=== PATIENT | male | born 1975 | race Caucasian/White ===

== ENCOUNTER 2017-03-23 11:52 | Outpatient (CLI) ==
[2014-03-20 20:00] VITALS: BMI 46.1
== END 2017-03-23 11:53 | disposition home or self-care (01) ==
LOC: LAB 11:52
PROVIDERS: ATTEND Nurse Practitioner Family
DX: J02.9 Acute pharyngitis, unspecified (principal)
CPT/HCPCS: 87651; 87880

== ENCOUNTER 2017-04-13 15:46 | Emergency (ER) ==
[2017-04-13 15:50] VITALS: BP 159/97; TEMP 99.2; BMI 48.8
--- NOTE | 2017-04-13 16:45 | ED.PDOC ---
General ED Provider: Dr. JOSEFINA LEAL Chief Complaint: Sore Throat Stated Complaint: sore throat Time Seen by Physician: 16:00 Mode of Arrival: Walk-In Information Source: Patient Exam Limitations: No limitations Primary Care Provider: KAL DAUGHERTY Nursing and Triage Documentation Reviewed and Agree: Yes EENT Complaint Exam - Throat Complaint/Exam Onset/Duration: 1 day Symptoms Are: Still present Timimg: Intermittent Initial Severity: Moderate Current Severity: Moderate Aggravating: Reports: None Alleviating: Reports: None Associated Signs and Symptoms: Reports: Cough, Nasal congestion Uvula Midline: Yes Macarena-tonsillar Fluctuence: No Scarlatinaform Rash Present: No Stridor Present: No Sinus Tenderness Present: No Tonsillar Hypertrophy Present: No Tonsillar Exudate Present: No Macarena-tonsillar Swelling Present: No Adenopathy Present: No Splenomegaly Present: No Review of Systems - Review Of Systems Constitutional: Reports: No symptoms Eyes: Reports: No symptoms Ears, Nose, Mouth, Throat: Reports: Throat pain Respiratory: Reports: No symptoms Cardiac: Reports: No symptoms GI: Reports: No symptoms : Reports: No symptoms Musculoskeletal: Reports: No symptoms Skin: Reports: No symptoms Neurological: Reports: No symptoms Endocrine: Reports: No symptoms Hematologic/Lymphatic: Reports: No symptoms All Other Systems: Reviewed and Negative Past Medical History - Past Medical History Previously Healthy: Yes Endocrine: Reports: None Cardiovascular: Reports: None Respiratory: Reports: None Hematological: Reports: None Gastrointestinal: Reports: None Genitourinary: Reports: None Neuro/Psych: Reports: None Musculoskeletal: Reports: None Cancer: Reports: None - Surgical History General Surgical History: Reports: None - Family History Family History: Reports: None - Social History Smoking Status: Vaping Hx Substance Use: No Alcohol Screening: None Physical Exam - Physical Exam Appearance: Well-appearing, No pain distress, Well-nourished Eyes: LEONOR, EOMI, Conjunctiva clear ENT: Erythema, Exudate Respiratory: Airway patent, Breath sounds clear, Breath sounds equal, Respirations nonlabored Cardiovascular: RRR, Pulses normal, No rub, No murmur GI/: Soft, Nontender, No masses, Bowel sounds normal, No Organomegaly Musculoskeletal: Normal strength, ROM intact, No edema, No calf tenderness Skin: Warm, Dry, Normal color Neurological: Sensation intact, Motor intact, Reflexes intact, Cranial nerves intact, Alert, Oriented Psychiatric: Affect appropriate, Mood appropriate Critical Care Note - Critical Care Note Total Time (mins): 0 Course - Course Vital Signs: Temp Pulse Resp BP Pulse Ox 04/13/17 15:46 99.2 F 85 20 159/97 H 95 Departure - Departure Time of Disposition: 16:45 Disposition: HOME SELF-CARE Discharge Problem: Sore throat symptom Instructions: Pharyngitis (ED), Strep Throat (ED) Condition: Good Pt referred to PMD for follow-up: No Allergies/Adverse Reactions: Allergies No Known Allergies Allergy (Verified 04/13/17 15:50) Home Medications: Ambulatory Orders Clonazepam [Klonopin] 0.5 mg PO TID 03/20/14 Levothyroxine Sodium 25 mcg PO DAILY #1 tab-cap 03/24/16 Lisinopril 40 mg PO DAILY #1 tab-cap 03/24/16
== END 2017-04-13 16:50 | disposition home or self-care (01) ==
LOC: ED 15:46
DX: J02.9 Acute pharyngitis, unspecified (principal)
CPT/HCPCS: 99282

== ENCOUNTER 2017-08-02 18:39 | Inpatient (IN) ==
--- NOTE | 2017-08-02 18:49 | ED.PDOC ---
General Stated Complaint: hurts in right lower thoracic back and side, onset 2 days ago. Initially mild, now more severe. Hurts if he sneezes of takes a deep breath. No cough. Has had cold sx for 2 days also. Time Seen by Physician: 18:50 Mode of Arrival: Walk-In Information Source: Patient Exam Limitations: No limitations Nursing and Triage Documentation Reviewed and Agree: Yes <RADHA FAITH - Last Filed: 08/02/17 19:03> Stated Complaint: Took 4 Ibupfrufen 30 min prior to arrival. <DIETER AMBROSE - Last Filed: 08/02/17 23:25> ED Provider: Dr. DIETER AMBROSE Chief Complaint: Back Pain Primary Care Provider: KAL DAUGHERTY Musculoskeletal Complaint Exam - Back Pain Complaint/Exam Mechanism of Injury: Reports: No known trauma Onset/Duration: 2 days Symptoms Are: Still present Timing: Constant Initial Severity: Mild Current Severity: Moderate Location: Reports: Diffuse Character: Reports: Aching, Throbbing (sharp pain with deep breath) Aggravating: Reports: Movements, Cough (deep breath) Alleviating: Reports: None TAD Risk Factors: Reports: None AAA Risk Factors: Reports: None Cauda Equina Risk Factors: Reports: None Epidural Abcess Risk Factors: Reports: None Related Surgical History: Reports: None Focal Tenderness: No Paraspinal Muscle Tenderness: No Paraspinal Muscle Spasm: No Scoliosis: No Lordosis: No Kyphosis: No Focal Weakness: Present: None Focal Sensory Loss: Present: None Gait: Present: Normal Differential Diagnoses: Strain (pleurisy, ureterolithiasis) <RADHA FAITH - Last Filed: 08/02/17 19:03> Review of Systems - Review Of Systems Constitutional: Reports: No symptoms Eyes: Reports: No symptoms Ears, Nose, Mouth, Throat: Reports: No symptoms Respiratory: Reports: No symptoms Cardiac: Reports: Chest pain GI: Reports: No symptoms : Reports: No symptoms Musculoskeletal: Reports: Back pain Skin: Reports: No symptoms Neurological: Reports: Anxiety Endocrine: Reports: No symptoms Hematologic/Lymphatic: Reports: No symptoms All Other Systems: Reviewed and Negative <DIETER AMBROSE - Last Filed: 08/02/17 23:25> Past Medical History - Past Medical History Previously Healthy: Yes Endocrine: Reports: None Cardiovascular: Reports: None Respiratory: Reports: None Hematological: Reports: None Gastrointestinal: Reports: None Genitourinary: Reports: None Neuro/Psych: Reports: None Musculoskeletal: Reports: None Cancer: Reports: None - Surgical History General Surgical History: Reports: None - Family History Family History: Reports: None - Social History Smoking Status: Vaping Hx Substance Use: No Alcohol Screening: None <RADHA FAITH - Last Filed: 08/02/17 19:03> - Past Medical History Endocrine: Reports: Hypothyroid Cardiovascular: Reports: Hypertension Other Pertinent Past Medical History: obesity , sedentary life style - Family History Family History: Reports: None <DIETER AMBROSE - Last Filed: 08/02/17 23:25> Physical Exam - Physical Exam Appearance: Well-appearing, No pain distress, Well-nourished, Obese Ill-appearing: None Pain Distress: Moderate Respiratory: Airway patent, Breath sounds clear, Breath sounds equal, Respirations nonlabored Cardiovascular: RRR, Pulses normal, No rub, No murmur GI/: Soft, Nontender, No masses, Bowel sounds normal, No Organomegaly Musculoskeletal: Normal strength, ROM intact, No edema, No calf tenderness Skin: Warm, Dry, Normal color Neurological: Sensation intact, Motor intact, Reflexes intact, Cranial nerves intact, Alert, Oriented Psychiatric: Affect appropriate, Mood appropriate <RADHA FAITH - Last Filed: 08/02/17 19:03> Interpretation - Radiology Interpretation Radiology Interpretation By: Radiologist Radiology Results: Negative Exam Interpreted: CXR Radiology Interpretation By: Radiologist Radiology Results: Positive (right lower segmental PE) Exam Interpreted: CT Scan (angio ) <DIETER AMBROSE - Last Filed: 08/02/17 23:25> Re-Evaluation - Re-Evaluation Time of Re-Evaluation: 20:50 Status: Improved Vital Signs Stable: Yes Pain Level: 3 Appearance: NAD <DIETER AMBROSE - Last Filed: 08/02/17 23:25> Physician Notification - Case Discussed Time of Notification: 19:04 Endorsed To/Discussed With: Dr. Ambrose <RADHA FAITH - Last Filed: 08/02/17 19:03> Critical Care Note - Critical Care Note Total Time (mins): 35 <DIETER AMBROSE - Last Filed: 08/02/17 23:25> Course - Course Hematology/Chemistry: 08/02/17 19:00 08/02/17 19:00 <DIETER AMBROSE - Last Filed: 08/02/17 23:25> - Course Orders, Labs, Meds: Lab Review 08/02/17 08/02/17 08/02/17 19:00 19:08 21:39 WBC 10.75 H RBC 5.03 Hgb 14.6 Hct 43.0 MCV 85.5 MCH 29.0 MCHC 34.0 RDW Coeff of Brenda 13.1 Plt Count 184 Immature Gran % (Auto) 0.4 Neut % (Auto) 69.1 Lymph % (Auto) 19.4 Trigg % (Auto) 8.0 Eos % (Auto) 2.6 Baso % (Auto) 0.5 Immature Gran # (Auto) 0.0 Neut # 7.4 H Lymph # 2.1 Trigg # 0.9 Eos # 0.3 Baso # 0.1 D-Dimer (Manual) 1365.02 Puncture Site Lb O2 Saturation 92.0 L ABG pH 7.373 ABG pCO2 40.7 ABG pO2 65.0 L ABG HCO3 23.7 ABG Total CO2 25 ABG Base Excess -2 Philippe Test + FiO2 % 21.0 Sodium 139 Potassium 4.4 Chloride 103 Carbon Dioxide 26 Anion Gap 14.4 BUN 10 Creatinine 0.96 Estimated GFR (MDRD) 86.00 BUN/Creatinine Ratio 10.41 Glucose 105 H Calcium 9.3 Total Bilirubin 0.75 AST 11 L ALT 24 Alkaline Phosphatase 65 Troponin I < 0.0100 Total Protein 7.5 Albumin 3.6 Globulin 3.9 Albumin/Globulin Ratio 0.92 Urine Color Yellow Urine Clarity Clear Urine pH 6.0 Ur Specific Morland 1.015 Urine Protein Negative Urine Glucose (UA) Negative Urine Ketones Negative Urine Blood Negative Urine Nitrite Negative Urine Bilirubin Negative Urine Urobilinogen 0.2 Ur Leukocyte Esterase Negative Orders Category Date Time Status ABG DRAW REQUEST Stat CARDIO 08/02/17 21:40 Ordered EKG-(ED ONLY) Stat CARDIO 08/02/17 19:32 Ordered NPO REMINDER: IMAGING ONCE CARE 08/02/17 20:15 Completed ED IV/MEDIPORT/POWERPORT .ONCE EMERGENCY 08/02/17 20:15 Active ABG Stat LAB 08/02/17 21:39 Completed CBC W/ AUTO DIFF Stat LAB 08/02/17 19:00 Completed CMP [COMPREHENSIVE METABOLIC PANEL] Stat LAB 08/02/17 19:00 Completed D-DIMER Stat LAB 08/02/17 19:00 Completed TROPONIN I Stat LAB 08/02/17 19:00 Completed URINALYSIS C & S IF INDICATED Stat LAB 08/02/17 19:08 Completed 0.9 % Sodium Chloride [Saline Flush] MEDS 08/02/17 20:15 Ordered 1 syr IVF PRN PRN Enoxaparin Sodium [Lovenox] MEDS 08/02/17 21:38 Discontinued 170 mg SUBCUT ONCE STA Ketorolac Tromethamine [Toradol] MEDS 08/02/17 19:48 Discontinued 30 mg IM ONCE STA Sodium Chloride 0.9% [Sodium Chloride] 1,000 ml MEDS 08/02/17 20:52 Discontinued IV BOLUS CHEST, 2 VIEWS PA & LAT Stat RADS 08/02/17 18:[address] CHEST PE PROTOCOL Stat RADS 08/02/17 20:15 Completed Medications Generic Name Dose Route Start Last Admin Trade Name Freq PRN Reason Stop Dose Admin Acetaminophen 650 mg 08/02/17 22:19 Tylenol PO Q4H PRN Mild pain Acetaminophen/Hydrocodone Bitart 1 tab 08/02/17 22:19 Dysart 5-325 PO Q6H PRN moderate pain Albuterol/Ipratropium 1 vial 08/02/17 22:19 Duoneb NEB RTBID PRN Wheezing or shortness of breat Apixaban 10 mg 08/02/17 22:30 Eliquis PO BID CHEIKH Sodium Chloride 1,000 mls @ 75 mls/hr 08/02/17 22:30 Sodium Chloride IV .[id number] [facility] Levothyroxine Sodium 25 mcg 08/03/17 09:00 Synthroid PO DAILY CHEIKH Non-Formulary Medication 40 mg 08/03/17 09:00 Lisinopril [Lisinopril] PO DAILY CHEIKH Ondansetron HCl 4 mg 08/02/17 22:19 Zofran 4 Mg/2 Ml IVP Q6H PRN Nausea / Vomiting Sodium Chloride 1 syr 08/02/17 20:15 08/02/17 22:17 Saline Flush IVF 1 syr PRN PRN Administration To flush IV Discontinued Medications Generic Name Dose Route Start Last Admin Trade Name Freq PRN Reason Stop Dose Admin Enoxaparin Sodium 170 mg 08/02/17 21:38 08/02/17 22:14 Lovenox SUBCUT 08/02/17 21:39 170 mg ONCE STA Administration Enoxaparin Sodium 170 mg 08/02/17 22:30 Lovenox SUBCUT 08/02/17 22:31 ONCE STA Sodium Chloride 1,000 mls @ 1,000 mls/hr 08/02/17 20:52 08/02/17 21:04 Sodium Chloride IV 08/02/17 21:51 1,000 mls/hr BOLUS STA Administration Ketorolac Tromethamine 30 mg 08/02/17 19:48 08/02/17 19:53 Toradol IM 08/02/17 19:49 30 mg ONCE STA Administration Non-Formulary Medication 0.5 mg 08/03/17 09:00 Clonazepam [Klonopin] PO TID [facility] Vital Signs: Temp Pulse Resp BP Pulse Ox 08/02/17 18:40 98.3 F 101 H 22 150/91 H 98 Departure <RADHA FAITH - Last Filed: 08/02/17 19:03> - Departure Time of Disposition: 22:33 Pt referred to PMD for follow-up: No (Admitted ) <DIETER AMBROSE - Last Filed: 08/02/17 23:25> - Departure Disposition: HOME SELF-CARE Discharge Problem: Pulmonary embolism on right Condition: Fair Allergies/Adverse Reactions: Allergies No Known Allergies Allergy (Verified 08/02/17 18:46) Home Medications: Ambulatory Orders Clonazepam [Klonopin] 0.5 mg PO TID 03/20/14 Levothyroxine Sodium 25 mcg PO DAILY #1 tab-cap 03/24/16 Lisinopril 40 mg PO DAILY #1 tab-cap 03/24/16
[2017-08-02 18:51] VITALS: BMI 50.1
[2017-08-02 19:09] LABS: BASOPHILS # (AUTO) 0.1 K/uL (0-0.2); BASOPHILS % (AUTO) 0.5 % (0.0-3.0); EOSINOPHILS # (AUTO) 0.3 K/ul (0.0-0.7); EOSINOPHILS % (AUTO) 2.6 % (0.0-7.0); HEMOGLOBIN 14.6 g/dl (14.0-18.0); IMMATURE GRANULOCYTE % (AUTO) 0.4 % (0.0-5.0); LYMPHOCYTES # (AUTO) 2.1 K/uL (0.60-3.4); LYMPHOCYTES % (AUTO) 19.4 (10.0-50.0); MEAN CORPUSCULAR VOLUME 85.5 fl (80.0-94.0); MONOCYTES # (AUTO) 0.9 K/uL (0.4-2.0); NEUTROPHILS # (AUTO) 7.4 K/ul (2.0-6.9); NEUTROPHILS % (AUTO) 69.1; PLATELET COUNT 184 10^3/uL (140-440); RED BLOOD COUNT 5.03 10^6/ul (4.70-6.10); WHITE BLOOD COUNT 10.75 K/ul (4.2-10.2)
[2017-08-02 19:17] LABS: ADD URINE MICROSCOPIC NO; BILIRUBIN,URINE Negative (NEGATIVE); KETONES,URINE Negative (NEGATIVE); LEUKOCYTE ESTERASE ,URINE Negative (NEGATIVE); NITRITE,URINE Negative (NEGATIVE); PROTEIN,URINE Negative (NEGATIVE); URINE, BLOOD Negative (NEGATIVE)
[2017-08-02 19:29] LABS: ALBUMIN 3.6 g/dL (3.4-5.0); ALBUMIN/GLOBULIN RATIO 0.92; ANION GAP 14.4; BILIRUBIN,TOTAL 0.75 mg/dL (0.00-1.20); BUN/CREATININE RATIO 10.41; CALCIUM 9.3 mg/dL (8.2-10.2); CREATININE 0.96 mg/dL (0.60-1.10); POTASSIUM 4.4 mmol/L (3.5-5.1); TOTAL PROTEIN 7.5 g/dL (6.4-8.2)
--- NOTE | 2017-08-02 19:33 | DI ---
EXAM: Chest two views CLINICAL INDICATION: Right-sided chest pain. COMPARISON: 03/20/2014. FINDINGS: PA and lateral views of the thorax are provided. The pulmonary parenchyma is clear and there is no pleural abnormality. The cardiomediastinal silhou ette and visualized bony structures are unchanged. IMPRESSION: Negative chest x-ray.
[2017-08-02] MEDS ORDERED: TORADOL IM STA (19:48)
[2017-08-02] MEDS ORDERED: SODIUM CHLORIDE 1,000 ML IV STA (20:52)
--- NOTE | 2017-08-02 21:30 | CT ---
EXAM: CTA chest for Pulminary Embolism. HISTORY: Chest pain, elevated D-dimer COMPARISON: Chest, 08/02/2017 TECHNIQUE: CTA of the chest was performed from the lung apices to the upper abdomen after IV contr ast was administered using PE protocol. 3-D imaging was also provided. FINDINGS: There is no filling defect or embolism in the main pulmonary artery, right or left pulmon bina artery. However, there are filling defects in the segmental branches of the right lower lobe pul monary artery consistent with acute pulmonary embolism. There is no aortic dissection aneurysm. No pericardial pleural effusion. There is no mediastinal o r hilar adenopathy. No pulmonary consolidation or pneumonia seen. There is some steatosis of the l iver. No adrenal enlargement. No acute finding the upper Kira. Impression 1. Current exam confirms pulmonary emboli in the segmental branches of the right lower lobe pulmona ry artery. 2. No acute pulmonary infiltrate, pulmonary edema or pleural fluid. 3. Steatosis of the liver. Critical result of pulmonary emboli right lower lobe pulmonary artery segmental branches called to [facility] staff, Dr. Helm, at 9:25 p.m. Faxed report sent.
[2017-08-02] MEDS ORDERED: LOVENOX SUBCUT STA ×2 (21:38→22:30)
[2017-08-02 22:00] LABS: ABG PH 7.373 (7.35-7.45)
[2017-08-02 22:01] LABS: ABG BASE EXCESS -2 (-2.0-2.0); ABG HCO3 23.7 (22.0-26.0); ABG PCO2 40.7 mmHg (35-45); ABG TCO2 25 (22.0-28.0)
[2017-08-02] MEDS ORDERED: TYLENOL PO PRN (22:19)
[2017-08-02] MEDS ORDERED: ZOFRAN 4 MG/2 ML IVP PRN (22:19)
[2017-08-02] MEDS ORDERED: NORCO 5-325 PO PRN (22:19)
[2017-08-02] MEDS ORDERED: DUONEB NEB PRN (22:19)
[2017-08-02] MEDS ORDERED: ELIQUIS PO SCH (22:30)
[2017-08-02] MEDS ORDERED: KLONOPIN ONE (22:34)
[2017-08-02] MEDS: SODIUM CHLORIDE 1,000 ML IV SCH (22:44)
[2017-08-02] MEDS ORDERED: NON-FORMULARY MEDICATION (Clonazepam [Klonopin] 0.5 MG) PO SCH ×22 (22:45)
[2017-08-03] MEDS ORDERED: TORADOL IVP STA (02:45)
[2017-08-03] MEDS: KLONOPIN PO SCH ×3 (04:35→21:02)
[2017-08-03] MEDS ORDERED: KLONOPIN ONE (04:35)
[2017-08-03 04:56] LABS: BASOPHILS % (AUTO) 0.3 % (0.0-3.0); EOSINOPHILS # (AUTO) 0.3 K/ul (0.0-0.7); HEMATOCRIT 38.1 % (42.0-52.0); HEMOGLOBIN 12.7 g/dl (14.0-18.0); IMMATURE GRANULOCYTE % (AUTO) 0.2 % (0.0-5.0); LYMPHOCYTES # (AUTO) 2.1 K/uL (0.60-3.4); LYMPHOCYTES % (AUTO) 23.3 (10.0-50.0); MEAN CORPUSCULAR HEMOGLOBIN 29.1 pg (27.0-31.0); MEAN CORPUSCULAR HGB CONC 33.3 (31.8-35.4); MEAN CORPUSCULAR VOLUME 87.2 fl (80.0-94.0); MONOCYTES # (AUTO) 0.9 K/uL (0.4-2.0); MONOCYTES % (AUTO) 9.9 (0-10); NEUTROPHILS # (AUTO) 5.6 K/ul (2.0-6.9); NEUTROPHILS % (AUTO) 63.3; PLATELET COUNT 163 10^3/uL (140-440); RED BLOOD COUNT 4.37 10^6/ul (4.70-6.10); WHITE BLOOD COUNT 8.78 K/ul (4.2-10.2)
[2017-08-03 05:24] LABS: ALBUMIN 3.1 g/dL (3.4-5.0); ANION GAP 14.2; BILIRUBIN,TOTAL 0.54 mg/dL (0.00-1.20); BUN/CREATININE RATIO 13.09; CALCIUM 8.7 mg/dL (8.2-10.2); CREATININE 0.84 mg/dL (0.60-1.10); POTASSIUM 4.2 mmol/L (3.5-5.1); TOTAL PROTEIN 6.2 g/dL (6.4-8.2)
[2017-08-03] MEDS ORDERED: TORADOL IVP PRN (08:12)
[2017-08-03 08:23] LABS: PROTHROMBIN TIME 10.6 SEC (9.3-11.0)
[2017-08-03] MEDS ORDERED: DECADRON 4 MG/ML SDV IM STA (08:46)
[2017-08-03 08:51] LABS: CHOL/HDL RATIO 4.1 (4.5-6.4)
[2017-08-03] MEDS: ELIQUIS PO SCH ×2 (08:54→21:02)
[2017-08-03] MEDS: ZESTRIL PO SCH (08:54)
[2017-08-03] MEDS: SYNTHROID PO SCH (08:54)
[2017-08-03] MEDS ORDERED: NON-FORMULARY MEDICATION (Lisinopril [Lisinopril] 40 MG) PO SCH (09:00)
[2017-08-03] MEDS ORDERED: NON-FORMULARY MEDICATION (Clonazepam [Klonopin] 0.5 MG) PO SCH ×22 (09:00)
--- NOTE | 2017-08-03 09:12 | PCM.PROG ---
Attending Provider: ATTENDING PROVIDER: [facility] DATE OF SERVICE: 08/03/17 SUBJECTIVE: This 41 year old WHITE/ M was hospitalized 08/02/17. The patient is seen with Karina, Nurse Practitioner. alert, lying in bed. The patient has no shortness of breath. The patient is complaining of pain with inspiration. CTA showed embolism in right pulmonary artery. REVIEW OF SYSTEMS: CONSTITUTIONAL: No night sweats. No fatigue, malaise, lethargy. No fever or chills. HEENT: Eyes: No visual changes. No eye pain. No eye discharge. ENT: No runny nose. No epistaxis. No sinus pain. No odynophagia. No congestion. RESPIRATORY: Positive for pain with inspiration. No shortness of breath. No cough, no congestion. No hemoptysis. CARDIOVASCULAR: No angina symptoms. No CHF symptoms. No atypical chest pain for CAD. No palpitations. No orthopnea.. GASTROINTESTINAL: No abdominal pain. No nausea or vomiting. No diarrhea or constipation. No hematemesis. No hematochezia. GENITOURINARY: No urgency. No frequency. No dysuria. No hematuria. No obstructive symptoms. No discharge. No pain. No significant abnormal bleeding. MUSCULOSKELETAL: No musculoskeletal pain; no joint swelling. NEUROLOGICAL: Awake, alert, oriented to time, place and person. No headache. No neck pain. No syncope. No seizures. No dizziness. PSYCHIATRIC: Not anxious. No depression. No suicidal thoughts. No homicidal thoughts. SKIN: No rash. No lesions. No wounds. ENDOCRINE: No unexplained weight loss. No weight gain. HEMATOLOGIC/LYMPHATIC: No anemia. No purpura. No petechiae. No prolonged or excessive bleeding. No palpable lymph nodes. PHYSICAL EXAMINATION: GENERAL: The patient is awake, alert and oriented, lying in bed in no acute distress. VITAL SIGNS: Temperature 97.2 F, Pulse 73, Respiratory Rate 16, BP 109/70, Pulse Ox 98% HEENT: Head normocephalic, atraumatic. Eyes: Extraocular muscles are intact. Pupils are equal, round and reactive to light and accommodation. Ears: No lesions. Nose appeared normal. Throat: No exudate or erythema. NECK: Supple. No JVD, no carotid bruit. No lymphadenopathy or thyromegaly. LUNGS: Clear and equal with diminished breath sounds. Percussion note normal. Chest symmetrical. HEART: S1, S2, no S3. No murmurs. No cyanosis or clubbing. No ascites. Pulses: Dorsalis pedis and posterior tibial pulses +1 to +2 both sides. ABDOMEN: Soft. Non-tender. Bowel sounds active. No CVA tenderness. No mass felt. EXTREMITIES: No calf swelling, no redness. Negative Kamila's sign. No edema. Full range of motion of all extremities, equal. NEUROLOGIC: No focal deficit. Cranial nerves II through XII are grossly intact. No headache, no double vision or headache. SKIN: Not dry. Intact. Turgor-normal. LYMPHATIC: No palpable lymph nodes/no lymphedema. MUSCULOSKELETAL: Normal joints with no swelling. Muscle tone is normal. LAB REVIEW: 08/03/17 04:30 08/03/17 04:30 08/03/17 04:30: WBC 8.78, RBC 4.37 L, Hgb 12.7 L, Hct 38.1 L, MCV 87.2, MCH 29.1 , MCHC 33.3, RDW Coeff of Brenda 13.2, Plt Count 163, Immature Gran % (Auto) 0.2, Neut % (Auto) 63.3, Lymph % (Auto) 23.3, Wharton % (Auto) 9.9, Eos % (Auto) 3.0, Baso % (Auto) 0.3, Immature Gran # (Auto) 0.0, Neut # 5.6, Lymph # 2.1, Wharton # 0.9, Eos # 0.3, Baso # 0.0, Sodium 141, Potassium 4.2, Chloride 104, Carbon Dioxide 27, Anion Gap 14.2, BUN 11, Creatinine 0.84, Estimated GFR (MDRD) 100.00 , BUN/Creatinine Ratio 13.09, Glucose 99, Calcium 8.7, Total Bilirubin 0.54, AST 10 L, ALT 19, Alkaline Phosphatase 58, Total Protein 6.2 L, Albumin 3.1 L, Globulin 3.1, Albumin/Globulin Ratio 1.00 ASSESSMENT: 1. Acute pulmonary embolism 2. Obesity 3. Hypertension 4. Hypothyroid PLAN: 1. Lipid panel 2. T4 and TSH 3. Toradol 30 mg q.8 p.r.n. 4. Venous scan today 5. PT/PTT/INR 6. ABGs if not done Plan and coordination of the patient's care discussed in the presence of Cytogenetic Technologist and nurse. CONDITION: Guarded SCRIBED BY: BENNIE SHIPMAN Dental Lab Technician scribed while in presence of service performed by Dr. CHRISTIANO J[facility]AREZ-[facility]/KARINA CASTRO APRN on 08/03/17 ([id number])
[2017-08-03] MEDS: TORADOL IVP PRN ×2 (09:49→16:46)
[2017-08-03] MEDS: PROTONIX IV 40 MG in SODIUM CHLORIDE 100 ML IV SCH ×2 (10:43→21:09)
[2017-08-03] MEDS: SODIUM CHLORIDE 1,000 ML IV SCH (12:20)
--- NOTE | 2017-08-03 12:47 | PN ---
DATE OF SERVICE: 08/02/17 - ADMITTING NOTE REASON FOR HOSPITALIZATION: Right lower lobe segmental pulmonary embolus. HISTORY OF PRESENT ILLNESS: This is a 41-year-old white male who was hospitalized with pleuritic type of pain which was further investigated. D. dimer was elevated. Pulmonary embolus was diagnosed. The patient's cardiovascular status is stable with pulse of 80 per minute. Blood pressure 128/70, oxygen saturation 96% on room air. Risk factors are sedentary lifestyle and smoking. PHYSICAL EXAMINATION: HEENT: Head normocephalic, atraumatic. Eyes: Extraocular muscles are intact. Pupils are equal, round and reactive to light and accommodation. Ears: No lesions. Nose appeared normal. Throat: No exudate or erythema. NECK: Supple. No JVD, no carotid bruit. No lymphadenopathy or thyromegaly. LUNGS: Clear to auscultation. Decreased breath sounds. Percussion note normal. Chest symmetrical. CVS: S1, S2, no S3. No murmurs. No cyanosis or clubbing. No ascites. Pulses : Dorsalis pedis and posterior tibial pulses +1 to +2 both sides. ABDOMEN: Soft. Nontender. Bowel sounds active. No CVA tenderness. No mass felt. EXTREMITIES: No edema. Full range of motion of all extremities, equal. NEUROLOGIC: No focal deficit. Cranial nerves II through XII are grossly intact. No headache, no double vision or headache. SKIN: Not dry. Intact. Turgor - normal. LYMPHATIC: No palpable lymph nodes/no lymphedema. MUSCULOSKELETAL: Normal joints with no swelling. Muscle tone is normal. ASSESSMENT: 1. ACUTE PULMONARY EMBOLUS, SEGMENTAL, RIGHT LOWER LOBE WITH PLEURITIC TYPE OF PAIN. 2. COPD. 3. HYPERTENSION. 4. SEDENTARY LIFESTYLE. 5. SMOKING. PLAN: 1. Start Eliquis 10 b.i.d. for 7 days; after that 5 mg b.i.d. 2. Will do bilateral and venous scan. 3. Telemetry, EKG, Echocardiogram. 4. Factor V Leiden and several blood tests for hypercoagulable status to rule out hypercoagulable status. COUNSELING FOR SMOKING DONE. CONDITION: Stable MTDD
--- NOTE | 2017-08-03 14:18 | ECHO2D ---
Date of Exam: 08/03/17 Ordering Physician: HOSPITALIST--CHRISTIANO JUAREZ Room #: [id number] Reason for Echo: PULMONARY EMBOLISM M-Mode Normal Adult Results LV Dimensions Normal Adult Results AoV Opening excursions >1.6 >1.6 LVEDD-base- 3.5-5.8 5.6 Ao root dimensions 2.0-3.7 3.4 LVESD-base- 3.1-4.6 L. Atrium dimensions 1.9-3.8 5.0 Post. Wall thickness 0.8-1.1 1.1 IV septum (thickness) 0.7-1.2 1.2 Post. Wall excursion 0.72-1.3 NORMAL Septal motion NORMAL Systolic motion R. Ventricular cavity 1.5-2.0 NORMAL LVEF 60% 51% Paradoxical septal wall motion NORMAL 2-D : 2-D M Mode Echocardiogram was performed using apical four chamber and left parasternal long and short axis views. Mitral, tricuspid and aortic valves appear to be normal. Contractility of the left ventricle seems to be normal, so is the cavity size. Enlarged left atrial cavity. Aortic root appears to be normal. There is no pericardial effusion. There is no thrombus noted in the left ventricular or left aortic cavity. No mitral valve prolapse noted. M-MODE: MV: NORMAL AV: NORMAL TV: NORMAL PV: CHAMBER SIZE: ENLARGED LEFT ATRIAL CAVITY WALL MOTION: NORMAL PERICARDIUM: NORMAL INTERPRETATION: 1. BORDERLINE LEFT VENTRICULAR HYPERTROPHY 2. ENLARGED LEFT ATRIAL CAVITY 3. NORMAL LEFT VENTRICULAR CONTRACTILITY--EJECTION FRACTION 51% 4. LEFT VENTRICLE SIZE 5.6 CM MTDD
--- NOTE | 2017-08-03 15:00 | US ---
EXAM: Bilateral lower extremity venous Doppler HISTORY: Concern for DVT with prior pulmonary embolism. COMPARISON: CT chest 08/02/2017 TECHNIQUE: Sonographic and Doppler evaluation of the bilateral lower extremity vessels from the com mon femoral through the anterior tibial veins were obtained. Augmentation and compression technique s were also performed. FINDINGS: There is spontaneous Doppler flow seen in the bilateral lower extremity veins from the co mmon femoral through the anterior tibial veins. There is normal compression and augmentation throug hout the lower extremity veins. Sonographic appearance of the soft tissues are unremarkable. IMPRESSION: No lower extremity thrombus
[2017-08-04] MEDS: SODIUM CHLORIDE 1,000 ML IV SCH ×3 (04:14→21:57)
[2017-08-04] MEDS: KLONOPIN PO SCH ×3 (04:37→20:14)
[2017-08-04 05:28] LABS: BASOPHILS % (AUTO) 0.3 % (0.0-3.0); EOSINOPHILS # (AUTO) 0.2 K/ul (0.0-0.7); EOSINOPHILS % (AUTO) 1.8 % (0.0-7.0); HEMATOCRIT 36.1 % (42.0-52.0); IMMATURE GRANULOCYTE % (AUTO) 0.5 % (0.0-5.0); LYMPHOCYTES # (AUTO) 1.5 K/uL (0.60-3.4); LYMPHOCYTES % (AUTO) 15.4 (10.0-50.0); MEAN CORPUSCULAR HGB CONC 33.2 (31.8-35.4); MEAN CORPUSCULAR VOLUME 87.2 fl (80.0-94.0); MONOCYTES # (AUTO) 0.8 K/uL (0.4-2.0); MONOCYTES % (AUTO) 8.5 (0-10); NEUTROPHILS # (AUTO) 7.3 K/ul (2.0-6.9); NEUTROPHILS % (AUTO) 73.5; PLATELET COUNT 211 10^3/uL (140-440); RED BLOOD COUNT 4.14 10^6/ul (4.70-6.10); WHITE BLOOD COUNT 9.94 K/ul (4.2-10.2)
[2017-08-04 05:37] LABS: ALBUMIN 2.7 g/dL (3.4-5.0); ALBUMIN/GLOBULIN RATIO 0.79; ANION GAP 12.6; BILIRUBIN,TOTAL 0.32 mg/dL (0.00-1.20); BUN/CREATININE RATIO 14.11; CALCIUM 8.8 mg/dL (8.2-10.2); CREATININE 0.85 mg/dL (0.60-1.10); POTASSIUM 4.6 mmol/L (3.5-5.1); TOTAL PROTEIN 6.1 g/dL (6.4-8.2)
[2017-08-04] MEDS: SYNTHROID PO SCH (08:48)
[2017-08-04] MEDS: ZESTRIL PO SCH (08:49)
[2017-08-04] MEDS: PROTONIX IV 40 MG in SODIUM CHLORIDE 100 ML IV SCH ×2 (08:49→20:15)
[2017-08-04] MEDS: ELIQUIS PO SCH ×2 (08:49→20:14)
[2017-08-05 05:25] LABS: BASOPHILS % (AUTO) 0.6 % (0.0-3.0); EOSINOPHILS # (AUTO) 0.3 K/ul (0.0-0.7); EOSINOPHILS % (AUTO) 4.1 % (0.0-7.0); HEMOGLOBIN 12.5 g/dl (14.0-18.0); IMMATURE GRANULOCYTE % (AUTO) 0.4 % (0.0-5.0); LYMPHOCYTES # (AUTO) 2.3 K/uL (0.60-3.4); MEAN CORPUSCULAR HEMOGLOBIN 28.9 pg (27.0-31.0); MEAN CORPUSCULAR HGB CONC 32.9 (31.8-35.4); MONOCYTES # (AUTO) 0.6 K/uL (0.4-2.0); MONOCYTES % (AUTO) 8.1 (0-10); NEUTROPHILS % (AUTO) 54.8; PLATELET COUNT 221 10^3/uL (140-440); RED BLOOD COUNT 4.32 10^6/ul (4.70-6.10); WHITE BLOOD COUNT 7.25 K/ul (4.2-10.2)
[2017-08-05 05:50] LABS: ALBUMIN 2.7 g/dL (3.4-5.0); ALBUMIN/GLOBULIN RATIO 0.79; ANION GAP 9.1; BILIRUBIN,TOTAL 0.25 mg/dL (0.00-1.20); BUN/CREATININE RATIO 16.3; CALCIUM 8.6 mg/dL (8.2-10.2); CREATININE 0.92 mg/dL (0.60-1.10); POTASSIUM 4.1 mmol/L (3.5-5.1); TOTAL PROTEIN 6.1 g/dL (6.4-8.2)
[2017-08-05 06:03] LABS: CHOL/HDL RATIO 3.4 (4.5-6.4)
[2017-08-05] MEDS: KLONOPIN PO SCH ×3 (06:06→20:32)
[2017-08-05] MEDS: ELIQUIS PO SCH ×2 (08:24→20:32)
[2017-08-05] MEDS: SYNTHROID PO SCH (08:24)
[2017-08-05] MEDS: PROTONIX IV 40 MG in SODIUM CHLORIDE 100 ML IV SCH (08:24)
[2017-08-05] MEDS: ZESTRIL PO SCH (08:25)
[2017-08-05] MEDS: TORADOL IVP PRN ×2 (10:48→19:53)
[2017-08-05] MEDS: SODIUM CHLORIDE 1,000 ML IV SCH (12:31)
[2017-08-05] MEDS ORDERED: PROTONIX PO SCH (17:00)
[2017-08-05] MEDS ORDERED: PROTONIX ONE (23:36)
[2017-08-06] MEDS: KLONOPIN PO SCH (05:37)
[2017-08-06 05:41] VITALS: BP 105/63; TEMP 98.3
[2017-08-06 06:04] LABS: BASOPHILS % (AUTO) 0.4 % (0.0-3.0); EOSINOPHILS # (AUTO) 0.3 K/ul (0.0-0.7); EOSINOPHILS % (AUTO) 3.9 % (0.0-7.0); HEMATOCRIT 37.5 % (42.0-52.0); HEMOGLOBIN 12.7 g/dl (14.0-18.0); IMMATURE GRANULOCYTE % (AUTO) 0.4 % (0.0-5.0); LYMPHOCYTES # (AUTO) 1.7 K/uL (0.60-3.4); LYMPHOCYTES % (AUTO) 23.2 (10.0-50.0); MEAN CORPUSCULAR HEMOGLOBIN 29.4 pg (27.0-31.0); MEAN CORPUSCULAR HGB CONC 33.9 (31.8-35.4); MEAN CORPUSCULAR VOLUME 86.8 fl (80.0-94.0); MONOCYTES # (AUTO) 0.6 K/uL (0.4-2.0); MONOCYTES % (AUTO) 7.8 (0-10); NEUTROPHILS # (AUTO) 4.6 K/ul (2.0-6.9); NEUTROPHILS % (AUTO) 64.3; PLATELET COUNT 230 10^3/uL (140-440); RED BLOOD COUNT 4.32 10^6/ul (4.70-6.10)
[2017-08-06] MEDS ORDERED: PROTONIX PO SCH ×2 (06:30)
[2017-08-06] MEDS ORDERED: SYNTHROID PO SCH (06:30)
[2017-08-06 06:37] LABS: ALBUMIN 2.8 g/dL (3.4-5.0); ALBUMIN/GLOBULIN RATIO 0.8; ANION GAP 12.1; BILIRUBIN,TOTAL 0.38 mg/dL (0.00-1.20); BUN/CREATININE RATIO 18.18; CALCIUM 8.8 mg/dL (8.2-10.2); CREATININE 0.88 mg/dL (0.60-1.10); POTASSIUM 4.1 mmol/L (3.5-5.1); TOTAL PROTEIN 6.3 g/dL (6.4-8.2)
[2017-08-06] MEDS: ZESTRIL PO SCH (08:52)
[2017-08-06] MEDS: ELIQUIS PO SCH (08:52)
--- NOTE | 2017-08-06 10:30 | CM.DICTOOL ---
ADMISSION: 08/02/17 21:59 DISCHARGE: 08/06/17 DATE OF SERVICE: 08/06/17 FINAL DIAGNOSIS ACUTE PULMONARY EMBOLISM (SEGMENTAL BRANCHES OF RIGHT LOWER PULMONARY ARTERY) HYPERTENSION HYPOTHYROIDISM (BORDERLINE) TSH 6.0 MORBID OBESITY (BMI 50) FATTY LIVER (CTA CHEST 08/02/17) SMOKING-VAPE LAST VITALS Temp Pulse Resp BP Pulse Ox 98.3 F 76 20 105/63 95 08/06/17 05:40 08/06/17 05:40 08/06/17 05:40 08/06/17 05:40 08/06/17 05:40 ACTIVE MEDICATIONS Acetaminophen/Hydrocodone Bitart ([place] 5-325) 1 tab PO BID PRN (NEW PRESCRIPTION) PRN Reason: moderate pain Last Admin: 08/03/17 01:25 Dose: 1 tab Apixaban (Eliquis) 10 mg PO BID [facility] Stop: 08/09/17 09:01 Last Admin: 08/06/17 08:52 Dose: 10 mg (NEW PRESCRIPTION) Apixaban (Eliquis) 5 mg PO BID [facility] (NEW PRESCRIPTION) Clonazepam (Klonopin) 0.5 mg PO Q8H [facility] Last Admin: 08/06/17 05:37 Dose: 0.5 mg Levothyroxine Sodium (Synthroid) 25 mcg PO QDAC [facility] Last Admin: 08/06/17 05:42 Dose: 25 mcg Lisinopril (Zestril) 40 mg PO DAILY [facility] Last Admin: 08/06/17 08:52 Dose: 40 mg ALLERGIES No Known Allergies Allergy (Verified 08/02/17 18:46) NEW PRESCRIPTIONS: ELIQUIS 5 MG, TAKE TWO TABLETS (10 MG) BY MOUTH TWICE DAILY. ON 08/10/17 BEGIN TAKING ONE TABLET (5 MG) BY MOUTH TWICE DAILY (OFFICE SUPPLY PROVIDED #66 TABS) NORCO 5-325 MG, TAKE ONE TABLET BY MOUTH TWICE DAILY IF NEEDED (PRN) FOR PAIN SMOKING: NO TOBACCO USE USES VAPING DEVICE DISEASE SPECIFIC EDUCATION: PULMONARY EMBOLISM ELIQUIS AND NORCO HOME MEDICATIONS FOLLOW UP LAB REVIEW: 08/06/17 05:49 08/06/17 05:49 08/06/17 05:49: Sodium 140, Potassium 4.1, Chloride 107, Carbon Dioxide 25, Anion Gap 12.1, BUN 16, Creatinine 0.88, Estimated GFR (MDRD) 95.00, BUN/ Creatinine Ratio 18.18, Glucose 92, Calcium 8.8, Total Bilirubin 0.38, AST 10 L , ALT 20, Alkaline Phosphatase 51, Total Protein 6.3 L, Albumin 2.8 L, Globulin 3.5, Albumin/Globulin Ratio 0.80 08/06/17 05:49: WBC 7.20, RBC 4.32 L, Hgb 12.7 L, Hct 37.5 L, MCV 86.8, MCH 29.4 , MCHC 33.9, RDW Coeff of Brenda 13.1, Plt Count 230, Immature Gran % (Auto) 0.4, Neut % (Auto) 64.3, Lymph % (Auto) 23.2, Davis % (Auto) 7.8, Eos % (Auto) 3.9, Baso % (Auto) 0.4, Immature Gran # (Auto) 0.0, Neut # 4.6, Lymph # 1.7, Davis # 0.6, Eos # 0.3, Baso # 0.0 PLAN: DISCHARGE HOME TODAY RETURN TO SEE DR. JUAREZ ON 08/10/17 AT 2:15 P.M. KEEP YOUR APPOINTMENT FOR YOUR SLEEP STUDY AT [facility] ON 08/22/17. ARRIVE AT 7 PM. BRING YOUR PAJAMAS AND MEDICATIONS DUE FOR THE EVENING AND MORNING. DO NOT WEAR ANY COLOGNE OR HAIR PRODUCTS. PLAN TO SLEEP AT THE SLEEP CLINIC. THE TESTING WILL BE COMPLETED EARLY IN THE MORNING ON 08/23/17. CONTINUE YOUR HOME MEDICATIONS PER LIST PROVIDED BY THE NURSING STAFF NEW PRESCRIPTIONS: ELIQUIS 5 MG, TAKE TWO TABLETS (10 MG) BY MOUTH TWICE DAILY. ON 08/10/17 BEGIN TAKING ONE TABLET (5 MG) BY MOUTH TWICE DAILY (OFFICE SUPPLY PROVIDED 66 TABS) NORCO 5-325 MG, TAKE ONE TABLET BY MOUTH TWICE DAILY IF NEEDED (PRN) FOR PAIN ACTIVITY: GET PLENTY OF REST AT HOME. GRADUALLY INCREASE YOUR ACTIVITY LEVEL ACCORDING TO YOUR TOLERATION DIET: HEALTHY HEART SUMMARY: THE PATIENT IS ALERT AND ORIENTED X3. HE CURRENTLY RESIDES AT HOME. HE IS INDEPENDENT WITH ADL'S AND REQUIRES NO DME, HOME HEALTH OR HOMEMAKING SERVICES. HE DESIRES TO RETURN HOME AT DISCHARGE. THE SKIN TURGOR IS INTACT AND VERY WELL HYDRATED. THERE ARE NO DECUBITUS ULCERS PRESENT AT DISCHARGE. THE PATIENT IS AWARE AND AGREEABLE FOR DISCHARGE TODAY. CURRENT CODE STATUS: FULL CODE JOVANNI CASTRO APRN CHRISTIANO JUAREZ M.D.
--- NOTE | 2017-08-06 11:17 | PCM.PROG ---
Attending Provider: ATTENDING PROVIDER[facility] DATE OF SERVICE: 08/06/17 SUBJECTIVE: This 41 year old WHITE/ M was hospitalized 08/02/17. The patient is seen with Karina, Nurse Practitioner. The patient is sitting on the bed, is alert. He is scheduled to have a CTA this morning. REVIEW OF SYSTEMS: CONSTITUTIONAL: No night sweats. No fatigue, malaise, lethargy. No fever or chills. HEENT: Eyes: No visual changes. No eye pain. No eye discharge. ENT: No runny nose. No epistaxis. No sinus pain. No odynophagia. No congestion. RESPIRATORY: No cough, no congestion. No hemoptysis. No shortness of breath. CARDIOVASCULAR: No angina symptoms. No CHF symptoms. No atypical chest pain for CAD. No palpitations. No orthopnea.. GASTROINTESTINAL: No abdominal pain. No nausea or vomiting. No diarrhea or constipation. No hematemesis. No hematochezia. GENITOURINARY: No urgency. No frequency. No dysuria. No hematuria. No obstructive symptoms. No discharge. No pain. No significant abnormal bleeding. MUSCULOSKELETAL: No musculoskeletal pain; no joint swelling. NEUROLOGICAL: Awake, alert, oriented to time, place and person. No headache. No neck pain. No syncope. No seizures. No dizziness. PSYCHIATRIC: Not anxious. No depression. No suicidal thoughts. No homicidal thoughts. SKIN: No rash. No lesions. No wounds. ENDOCRINE: No unexplained weight loss. No weight gain. HEMATOLOGIC/LYMPHATIC: No anemia. No purpura. No petechiae. No prolonged or excessive bleeding. No palpable lymph nodes. PHYSICAL EXAMINATION: GENERAL: The patient is awake, alert and oriented, sitting on the side of the bed in no distress. VITAL SIGNS: Temperature 98.3 F, Pulse 76, Respiratory Rate 20, BP 105/63, Pulse Ox 95% HEENT: Head normocephalic, atraumatic. Eyes: Extraocular muscles are intact. Pupils are equal, round and reactive to light and accommodation. Ears: No lesions. Nose appeared normal. Throat: No exudate or erythema. NECK: Supple. No JVD, no carotid bruit. No lymphadenopathy or thyromegaly. LUNGS: Diminished breath sounds. Clear to auscultation. Percussion note normal. Chest symmetrical. HEART: S1, S2, no S3. No murmurs. No cyanosis or clubbing. No ascites. Pulses: Dorsalis pedis and posterior tibial pulses +1 to +2 both sides. ABDOMEN: Soft. Non-tender. Bowel sounds active. No CVA tenderness. No mass felt. EXTREMITIES: No edema. Full range of motion of all extremities, equal. NEUROLOGIC: No focal deficit. Cranial nerves II through XII are grossly intact. No headache, no double vision or headache. SKIN: Not dry. Intact. Turgor-normal. LYMPHATIC: No palpable lymph nodes/no lymphedema. MUSCULOSKELETAL: Normal joints with no swelling. Muscle tone is normal. LAB REVIEW: 08/06/17 05:49 08/06/17 05:49 08/06/17 05:49: Sodium 140, Potassium 4.1, Chloride 107, Carbon Dioxide 25, Anion Gap 12.1, BUN 16, Creatinine 0.88, Estimated GFR (MDRD) 95.00, BUN/ Creatinine Ratio 18.18, Glucose 92, Calcium 8.8, Total Bilirubin 0.38, AST 10 L , ALT 20, Alkaline Phosphatase 51, Total Protein 6.3 L, Albumin 2.8 L, Globulin 3.5, Albumin/Globulin Ratio 0.80 08/06/17 05:49: WBC 7.20, RBC 4.32 L, Hgb 12.7 L, Hct 37.5 L, MCV 86.8, MCH 29.4 , MCHC 33.9, RDW Coeff of Brenda 13.1, Plt Count 230, Immature Gran % (Auto) 0.4, Neut % (Auto) 64.3, Lymph % (Auto) 23.2, Thayer % (Auto) 7.8, Eos % (Auto) 3.9, Baso % (Auto) 0.4, Immature Gran # (Auto) 0.0, Neut # 4.6, Lymph # 1.7, Thayer # 0.6, Eos # 0.3, Baso # 0.0 ASSESSMENT: 1. Acute pulmonary embolism 2. Obesity 3. Hypertension 4. Hypothyroid PLAN: 1. CTA scheduled for this a.m. 2. [place] 5 mg b.i.d. p.r.n. #30 no refill. 3. Discharge home today. 4. Will follow with Patricia Aparicio. 5. Will continue Eliquis 10 mg until 08/09 then will start Eliquis 5 mg b.i.d. 6. Karla blood thinners side effects, risks and benefits discussed with the patient. He voiced understanding and is in agreement. Plan and coordination of the patient's care discussed in the presence of Job Hand and nurse. CONDITION: STABLE SCRIBED BY: BENNIE SHIPMAN Parking Lot Spotter scribed while in presence of service performed by Dr. CHRISTIANO JUAREZ-[facility]/KARINA CASTRO APRN on 08/06/17 ([id number])
--- NOTE | 2017-08-06 11:45 | CT ---
EXAM: CTA CHEST (PE PROTOCOL) HISTORY: Chest pain, recent pulmonary embolus. TECHNIQUE: CTA with intravenous contrast. Multiplanar images were provided with 3-D images. 150 mL Omnipaque. COMPARISON: 08/02/2017 FINDINGS: Suboptimal contrast opacification of the pulmonary arterial tree although small central filling defec ts remain visible within the right lower lobe segmental branches similar to that previously seen. No newly developed pulmonary arterial filling defects are identified. There has been development of a s mall right pleural effusion. Mild adjacent atelectasis is noted. Lungs are otherwise grossly clear. No vascular congestion or pneumothorax. Heart size is within nor mal limits. Thoracic aorta is unremarkable. A few nonspecific sub-centimeter mediastinal and hilar lymph nodes are again seen. No acute bony finding. Incidental note of probable hepatic steatosis. P robable early cirrhotic hepatic architecture. IMPRESSION: 1. Persistent right lower lobe pulmonary emboli without noticeable worsening or improvement. There has been development of a small right pleural effusion with mild adjacent atelectasis. This effusion could be related to a degree of right-sided pulmonary infarction. 2. Incidental note of probable hepatic steatosis. Probable early cirrhotic hepatic architecture.
--- NOTE | 2017-08-06 13:40 | PN ---
DATE OF SERVICE: 08/03/17 SUBJECTIVE: The patient is a 41 year old white male hospitalized with pulmonary embolism. The patient's condition is stable. The patient doesn't have any palpitations. His pulse is 70 per minute. Respiratory rate 15. He is not in any distress. REVIEW OF SYSTEMS: CONSTITUTIONAL: No night sweats. No fatigue, malaise, lethargy. No fever or chills. HEENT: Eyes: No visual changes. No eye pain. No eye discharge. ENT: No runny nose. No epistaxis. No sinus pain. No sore throat. No odynophagia. No congestion. RESPIRATORY: No cough, no congestion. No hemoptysis. No shortness of breath. CARDIOVASCULAR: No angina symptoms. No CHF symptoms. No atypical chest pain for CAD. No palpitations. No orthopnea. No PND. He is pleuritis type of pain which is controlled with Toradol. After I did the echo in the afternoon I asked him and he said that the pain is practically resolved after getting Toradol and Decadron this morning four hours ago GASTROINTESTINAL: No abdominal pain. No nausea or vomiting. No diarrhea or constipation. No hematemesis. No hematochezia. GENITOURINARY: No urgency. No frequency. No dysuria. No hematuria. No obstructive symptoms. No discharge. No pain. No significant abnormal bleeding. MUSCULOSKELETAL: No musculoskeletal pain; no joint swelling. NEUROLOGICAL: No headache. No neck pain. No syncope. No seizures. No dizziness. PSYCHIATRIC: Not anxious. No depression. No suicidal thoughts. No homicidal thoughts. SKIN: No rash. No lesions. No wounds. ENDOCRINE: No unexplained weight loss. No weight gain. HEMATOLOGIC/LYMPHATIC: No anemia. No purpura. No petechiae. No prolonged or excessive bleeding. No palpable lymph nodes. LABS: His echo showed LVH with enlarged LA cavity and borderline LV cavity. No paradoxical septal wall motion noted. No evidence of right ventricle fluids overload. The patient's pulmonary embolism is near segmental, small segment on the right lower lobe. He is on Eliquis. CONDITION:Stable. PLAN: 1. Discussed about Eliquis with GI bleed and intracranial bleed. 2. Advised not to take non-steroidal anti-inflammatory. 3. Also counseled about smoking TIME SPENT: More than 30 minutes. Plan and coordination of the patient's care discussed in the presence of nurse. KAYLA
--- NOTE | 2017-08-07 15:44 | DS ---
DATE OF SERVICE: 08/06/17 FINAL DIAGNOSIS: 1. Acute pulmonary embolism (segmental branches of right lower pulmonary artery) 2. Hypertension 3. Hypothyroidism (borderline) TSH 6.0 4. Morbid obesity (BMI 50) 5. Fatty liver (CTA Chest 08/02/17) 6. Smoking-Vape LAST VITALS: Temperature 98.3, pulse 76, respiratory 20, blood pressure 105/63 and pulse ox 95%. DISCHARGE INSTRUCTIONS: Discharge home today. Return to see Dr. Hawkins on 08/10/17 at 2:15pm. Keep appointment for sleep study at [facility] on 08/22/17. Arrive at 7pm. bring pajamas and medications due for the evening and morning. Do not wear any cologne or hair products. Plan to sleep at the sleep clinic. The testing will be completed early in the morning on 08/23/17. Continue home medication as per list provided. MEDICATIONS AT DISCHARGE: [place] 5-325 Po twice a day PRN Eliquis 10mg PO twice a day Eliquis 5mg PO twice a day Klonopin 0.5mg PO Q 8 hours Synthroid 25mcg PO QDAC Zestril 40mg PO daily ALLERGIES: No known allergies NEW PRESCRIPTIONS: Eliquis 5mg take two tablet by mouth twice daily on 08/10/17 begin taking one tablet (5mg) by mouth twice daily Norco5-325mg take one tablet by mouth twice daily if needed (PRN) for pain. DIET INSTRUCTIONS: Healthy heart ACTIVITY: Get plenty of rest at home. Gradually increase activity level according to toleration. SMOKING: No tobacco use Uses Vaping device DISEASE SPECIFIC EDUCATION: Pulmonary embolism Eliquis and [place] Home Medications Followup. HOSPITAL COURSE: 41 year old white male hospitalized with acute pulmonary embolism right subsegmental branch. The patient did not have any sinus tachycardia or hemoptysis or tachypnea. The patient had pleuritis type of pain that responded to IV Toradol with steroids. The patient was put on Eliquis 10mg twice a day to be taken for 7 days after that he will be on 5mg twice a day. He was explained about the Risk factors for pulmonary embolism and strongly advised to quit smoking. Also advised to quit dipping tobacco. He is morbidly obese and strongly advised to lose weight. Physical exercise as discussed with him. His job requires him to sit for long hours. He is advised to get up every hour and walk around and how to do the exercise while he is sitting. The labs for Factor V Leiden another genetic problems that contributes towards pulmonary embolism but the reports are pending. The patient's venous scan for both lower extremities were normal. The patient's cholesterol profile is excellent. He is not to go back to work until released. I am going to see him in 4-5 days and he is going to followup with his primary care provider, Markus Nurse Practitioner within one 7-10 days. The patient was given Eliquis 5mg and 4 weeks supply. Forms were signs for prior authorization. The patient is strongly advised to return to the emergency room incase if he starts having pleuritic type of pain and shortness of breath. The patient's echocardiogram showed LV contractility, LVH, borderline enlarged LV cavity, enlarged LA cavity. The patient definitely has early findings of dilated cardiomyopathy on the bases very likely from his morbid obesity. He was explained about this finding. Bariatric referral declined by the patient. TIME SPENT: More than 60 minutes. KAYLA
--- NOTE | 2017-08-07 15:46 | PN ---
08/02/17: Level 5 08/03/17: Extensive 08/04/17: Intermediate 08/05/17: Intermediate 08/06/17: D as in discharge, extensive MTDD
--- NOTE | 2017-08-08 14:58 | PN ---
DATE OF SERVICE: 08/05/17 SUBJECTIVE: 41 year old white male hospitalized with pulmonary embolism. The patient has right lower lobe segmental pulmonary embolism. The patient is practically asymptomatic. He is not short of breath. REVIEW OF SYSTEMS: CONSTITUTIONAL: No night sweats. No fatigue, malaise, lethargy. No fever or chills. HEENT: Eyes: No visual changes. No eye pain. No eye discharge. ENT: No runny nose. No epistaxis. No sinus pain. No sore throat. No odynophagia. No congestion. RESPIRATORY: No cough, no congestion. No hemoptysis. No shortness of breath. CARDIOVASCULAR: No angina symptoms. No CHF symptoms. No atypical chest pain for CAD. No palpitations. No orthopnea. No pleuritic pain. GASTROINTESTINAL: No abdominal pain. No nausea or vomiting. No diarrhea or constipation. No hematemesis. No hematochezia. GENITOURINARY: No urgency. No frequency. No dysuria. No hematuria. No obstructive symptoms. No discharge. No pain. No significant abnormal bleeding. MUSCULOSKELETAL: No musculoskeletal pain; no joint swelling. NEUROLOGICAL: No headache. No neck pain. No syncope. No seizures. No dizziness. PSYCHIATRIC: Not anxious. No depression. No suicidal thoughts. No homicidal thoughts. SKIN: No rash. No lesions. No wounds. ENDOCRINE: No unexplained weight loss. No weight gain. HEMATOLOGIC/LYMPHATIC: No anemia. No purpura. No petechiae. No prolonged or excessive bleeding. No palpable lymph nodes. PHYSICAL EXAMINATION: GENERAL: The patient is oriented to time, place and person. VITAL SIGNS: Temperature 97.1, pulse 70, respiratory rate 20 and blood pressure 140/70 and pulse ox 98%. HEENT: Head normocephalic, atraumatic. Eyes: Extraocular muscles are intact. Pupils are equal, round and reactive to light and accommodation. Ears: No lesions. Nose appeared normal. Throat: No exudate or erythema. NECK: Supple. No JVD, no carotid bruit. No lymphadenopathy or thyromegaly. LUNGS: Clear to auscultation. Percussion note normal. Chest symmetrical. HEART: S1, S2, no S3. No murmurs. No cyanosis or clubbing. No ascites. Pulses: Dorsalis pedis and posterior tibial pulses +1 to +2 both sides. ABDOMEN: Soft. Nontender. Bowel sounds active. No CVA tenderness. No mass felt. EXTREMITIES: No edema. Full range of motion of all extremities, equal. NEUROLOGIC: No focal deficit. Cranial nerves II through XII are grossly intact. No headache, no double vision or headache. SKIN: Not dry. Intact. Turgor - normal. LYMPHATIC: No palpable lymph nodes/no lymphedema. MUSCULOSKELETAL: Normal joints with no swelling. Muscle tone is normal. LABS: Hgb 12.5, hct 38, WBC 7,200 normal differential, creatinine 0.9, BUN 15, potassium 4.1, T4 TSH negative. EGFR normal. Lipid profile Cholesterol is 114, triglyceride 68, TSH was borderline high. ASSESSMENT: 1. Pulmonary embolism segmental seems to have resolved 2. Morbid obesity with BMI of 40 3. Smoking 4. Chronic lung disease PLAN: 1. Eliquis 10mg twice a day for 7 days, total of 7 days and then 5mg twice a day. Eliquis discussed with side effects like GI bleed, intracranial bleed. 2. Advised not to take any non-steroidal anti-inflammatory 3. Counseling for smoking cessation done 4. Risk factors for pulmonary embolism discussed in detail 5. Will do PFT today or tomorrow. 6. Discontinue IV fluids 7. Discontinue IV Protonix 8. The patient is to have Thoracic CT scan, pulmonary embolism protocol tomorrow. CONDITION: Stable TIME SPENT: More than 30 minutes. Plan and coordination of the patient's care discussed in the presence of nurse. KAYLA
--- NOTE | 2017-08-09 09:32 | PN ---
DATE OF SERVICE: 08/04/17 SUBJECTIVE: 41 year old white male hospitalized with pulmonary embolism. The patient is feeling a lot better and no pleuritic pain at all. He is up and about and wants to go home. The patient was educated about pulmonary embolism and need for him to stay a little longer. He is on Eliquis, side effects of Eliquis discussed in detail with GI bleed and intracranial bleed. Also pulmonary embolism with consequences discussed. Pulmonary embolism risk factors discussed and strongly advised to quit smoking. The patient's BMI is 50, he is morbidly obese. Advised to cut down on weight and advised to exercise regularly. His job is to sit up in the [employer] so he is advised to get up every hour and a half and every hour and walk for at least 2-3 minutes so exercise of the calf muscle discussed with him. REVIEW OF SYSTEMS: CONSTITUTIONAL: No night sweats. No fatigue, malaise, lethargy. No fever or chills. HEENT: Eyes: No visual changes. No eye pain. No eye discharge. ENT: No runny nose. No epistaxis. No sinus pain. No sore throat. No odynophagia. No congestion. RESPIRATORY: No cough, no congestion. No hemoptysis. No shortness of breath. CARDIOVASCULAR: No angina symptoms. No CHF symptoms. No atypical chest pain for CAD. No palpitations. No orthopnea. GASTROINTESTINAL: No abdominal pain. No nausea or vomiting. No diarrhea or constipation. No hematemesis. No hematochezia. GENITOURINARY: No urgency. No frequency. No dysuria. No hematuria. No obstructive symptoms. No discharge. No pain. No significant abnormal bleeding. MUSCULOSKELETAL: No musculoskeletal pain; no joint swelling. NEUROLOGICAL: No headache. No neck pain. No syncope. No seizures. No dizziness. PSYCHIATRIC: Not anxious. No depression. No suicidal thoughts. No homicidal thoughts. SKIN: No rash. No lesions. No wounds. ENDOCRINE: No unexplained weight loss. No weight gain. HEMATOLOGIC/LYMPHATIC: No anemia. No purpura. No petechiae. No prolonged or excessive bleeding. No palpable lymph nodes. PHYSICAL EXAMINATION: GENERAL: The patient is oriented to time, place and person. VITAL SIGNS: Temperature 97, pulse 71, respiratory rate 20, blood pressure 102/ 57 and pulse ox 93%. HEENT: Head normocephalic, atraumatic. Eyes: Extraocular muscles are intact. Pupils are equal, round and reactive to light and accommodation. Ears: No lesions. Nose appeared normal. Throat: No exudate or erythema. NECK: Supple. No JVD, no carotid bruit. No lymphadenopathy or thyromegaly. LUNGS: Decreased breath sounds but clear to auscultation. Percussion note normal. Chest symmetrical. HEART: S1, S2, no S3. No murmurs. No cyanosis or clubbing. No ascites. Pulses: Dorsalis pedis and posterior tibial pulses +1 to +2 both sides. ABDOMEN: Soft. Nontender. Bowel sounds active. No CVA tenderness. No mass felt. EXTREMITIES: No edema. Full range of motion of all extremities, equal. NEUROLOGIC: No focal deficit. Cranial nerves II through XII are grossly intact. No headache, no double vision or headache. SKIN: Not dry. Intact. Turgor - normal. LYMPHATIC: No palpable lymph nodes/no lymphedema. MUSCULOSKELETAL: Normal joints with no swelling. Muscle tone is normal. LABS: Hgb 12, hct 36, WBC 9,900 normal differential, creatinine 0.8, BUN 12, potassium 4.6. ASSESSMENT: 1. Pulmonary embolism involving right segmental area lower lobe seems to be practically asymptomatic. 2. Morbid obesity 3. Smoking 4. Chronic lung disease 5. Lipid profile unknown PLAN: 1. Do lipid profile, A1c 2. Counseling for smoking done 3. Continue Eliquis 4. Education carried out about pulmonary embolism 5. Advised patient to stay 6. Telemetry does not show any arrhythmia of any significance 7. Echo yesterday did not show any right ventricular overload CONDITION: Stable. After explaining enough and discussing things at length Jose has decided to stay. TIME SPENT: More than 30 minutes. Plan and coordination of the patient's care discussed in the presence of nurse. KAYLA
[2017-08-09] MEDS ORDERED: ELIQUIS PO SCH (21:00)
== END 2017-08-06 11:25 | disposition home or self-care (01) | DRG 176 ==
LOC: ED 18:39 → MEDSURG B 21:59
PROVIDERS: ADMIT Internal Medicine; ATTEND Internal Medicine
DX: I26.99 Other pulmonary embolism without acute cor pulmonale (principal); I42.0 Dilated cardiomyopathy; Z68.43 Body mass index [BMI] 50.0-59.9, adult; M54.6 Pain in thoracic spine; R07.1 Chest pain on breathing; I51.7 Cardiomegaly; R79.1 Abnormal coagulation profile; J44.9 Chronic obstructive pulmonary disease, unspecified; I10 Essential (primary) hypertension; K76.0 Fatty (change of) liver, not elsewhere classified; F17.290 Nicotine dependence, other tobacco product, uncomplicated; E03.9 Hypothyroidism, unspecified; E66.01 Morbid (severe) obesity due to excess calories; Z72.3 Lack of physical exercise; Z79.899 Other long term (current) drug therapy
CPT/HCPCS: 36415; 80053; 80061; 81001; 81240; 81241; 82803; 83036; 84439; 84443; 84484; 85025; 85379; 85610; 93005; 93010; 96360; 97802; 99285

== ENCOUNTER 2017-08-12 17:06 | Emergency (ER) ==
[2017-08-12 17:12] VITALS: TEMP 99.2; BMI 49.5
[2017-08-12] MEDS ORDERED: ADENOCARD IVP ONE (17:17)
[2017-08-12] MEDS ORDERED: ADENOCARD IVP STA (17:17)
[2017-08-12 17:38] LABS: BASOPHILS % (AUTO) 0.4 % (0.0-3.0); EOSINOPHILS # (AUTO) 0.4 K/ul (0.0-0.7); EOSINOPHILS % (AUTO) 3.9 % (0.0-7.0); HEMATOCRIT 39.8 % (42.0-52.0); HEMOGLOBIN 13.5 g/dl (14.0-18.0); IMMATURE GRANULOCYTE % (AUTO) 0.8 % (0.0-5.0); LYMPHOCYTES # (AUTO) 1.9 K/uL (0.60-3.4); LYMPHOCYTES % (AUTO) 19.4 (10.0-50.0); MEAN CORPUSCULAR HEMOGLOBIN 28.5 pg (27.0-31.0); MEAN CORPUSCULAR HGB CONC 33.9 (31.8-35.4); MONOCYTES # (AUTO) 1.1 K/uL (0.4-2.0); MONOCYTES % (AUTO) 11.1 (0-10); NEUTROPHILS # (AUTO) 6.4 K/ul (2.0-6.9); NEUTROPHILS % (AUTO) 64.4; PLATELET COUNT 150 10^3/uL (140-440); RED BLOOD COUNT 4.74 10^6/ul (4.70-6.10); WHITE BLOOD COUNT 9.92 K/ul (4.2-10.2)
--- NOTE | 2017-08-12 17:53 | ED.PDOC ---
General ED Provider: Dr. JOSEFINA LEAL Chief Complaint: Palpitations Stated Complaint: palpitation Time Seen by Physician: 17:10 (history of PE left hospital on sunday ) Mode of Arrival: Walk-In Information Source: Patient Exam Limitations: No limitations Primary Care Provider: KAL DAUGHERTY Referred to ED by: Other Nursing and Triage Documentation Reviewed and Agree: Yes (seen with entire staff. 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 Denies: Lightheadedness, Dizziness, Syncope, Shortness of breath, Diaphoresis, Nausea, Vomiting Related Surgical History: Reports: None Cardiac Risk Factors: Reports: Hypertension Pulmonary Embolism Risk Factors: Reports: Bedrest (HE HAS PE ) Atrial Fibrillation Risk Factors: Reports: Hypertension, Pulmonary Embolism Thyroid Exam: Normal Differential Diagnoses: Cardiomyopathy, CAD, Hypokalemia Quality Indicators for AMI: EKG in 10min. Quality Indicators for Cardiac Chest Pain: EKG in 10min. Quality Indicator For Non-Traumatic Chest Pain/Syncope: EKG Performed Review of Systems - Review Of Systems Constitutional: Reports: Malaise Eyes: Reports: No symptoms Ears, Nose, Mouth, Throat: Reports: No symptoms Respiratory: Reports: No symptoms Cardiac: Reports: Palpitations GI: Reports: No symptoms : Reports: No symptoms Musculoskeletal: Reports: No symptoms Skin: Reports: No symptoms Neurological: Reports: No symptoms Endocrine: Reports: No symptoms Hematologic/Lymphatic: Reports: No symptoms All Other Systems: Reviewed and Negative Past Medical History - Past Medical History Previously Healthy: Yes Endocrine: Reports: Hypothyroid Cardiovascular: Reports: Hypertension Respiratory: Reports: None Hematological: Reports: None Gastrointestinal: Reports: None Genitourinary: Reports: None Neuro/Psych: Reports: None Musculoskeletal: Reports: None Cancer: Reports: None Other Pertinent Past Medical History: obesity , sedentary life style - Surgical History General Surgical History: Reports: None - Family History Family History: Reports: None - Social History Smoking Status: Current every day smoker, Vaping Hx Substance Use: No Alcohol Screening: None Physical Exam - Physical Exam Appearance: Well-appearing, No pain distress, Well-nourished Eyes: LEONOR, EOMI, Conjunctiva clear ENT: Ears normal, Nose normal, Oropharynx normal Respiratory: Airway patent, Breath sounds clear, Breath sounds equal, Respirations nonlabored Cardiovascular: RRR, Pulses normal, No rub, No murmur GI/: Soft, Nontender, No masses, Bowel sounds normal, No Organomegaly Musculoskeletal: Normal strength, ROM intact, No edema, No calf tenderness Skin: Warm, Dry, Normal color Neurological: Sensation intact, Motor intact, Reflexes intact, Cranial nerves intact, Alert, Oriented Psychiatric: Affect appropriate, Mood appropriate Interpretation - Adjunct English Instructor Rhythm: Other (VT MONOMORPHIC POST ADENOCAR RETURNED TO SINUS RYTHM PA INTERVAL POST CONVERSION WNL) Physician Notification - Case Discussed Physician Notified: MARCHANGEL CASTILLO Time of Notification: 18:06 Critical Care Note - Critical Care Note Total Time (mins): 0 Course - Course Hematology/Chemistry: 08/12/17 17:25 Orders, Labs, Meds: Lab Review 08/12/17 17:25 WBC 9.92 RBC 4.74 Hgb 13.5 L Hct 39.8 L MCV 84.0 MCH 28.5 MCHC 33.9 RDW Coeff of Brenda 13.1 Plt Count 150 Immature Gran % (Auto) 0.8 Neut % (Auto) 64.4 Lymph % (Auto) 19.4 [place] % (Auto) 11.1 H Eos % (Auto) 3.9 Baso % (Auto) 0.4 Immature Gran # (Auto) 0.1 Neut # 6.4 Lymph # 1.9 [place] # 1.1 Eos # 0.4 Baso # 0.0 Orders Category Date Time Status EKG-(ED ONLY) Stat CARDIO 08/12/17 17:18 Ordered CBC W/ AUTO DIFF Stat LAB 08/12/17 17:25 Completed COMPREHENSIVE METABOLIC PANEL Stat LAB 08/12/17 17:25 Received CREATINE KINASE Stat LAB 08/12/17 17:25 Received TROPONIN I Stat LAB 08/12/17 17:25 Received Adenosine [Adenocard] MEDS 08/12/17 17:17 Discontinued 12 mg IVP .STK-MED ONE Adenosine [Adenocard] MEDS 09/17/17 17:17 Discontinued 6 mg IVP ONCE STA CHEST, 1V AP ONLY Stat RADS 08/12/17 17:18 Taken Medications Discontinued Medications Generic Name Dose Route Start Last Admin Trade Name Kat PRN Reason Stop Dose Admin Adenosine 6 mg 08/12/17 17:17 08/12/17 17:19 Adenocard IVP 08/12/17 17:18 6 mg ONCE STA Administration Vital Signs: Temp Pulse Resp BP Pulse Ox 08/12/17 17:50 106 H 20 100/79 08/12/17 17:20 194 H 120/76 08/12/17 17:07 99.2 F 205 H 24 0/0 L 94 L JULIANA Risk Score JULIANA Risk Score: Risk Score Odds of by 30D 0 0.1 (0.1-0.2) 1 0.3 (0.2-0.3) 2 0.4 (0.3-0.5) 3 0.7 (0.6-0.9) 4 1.2 (1.0-1.5) 5 2.2 (1.9-2.6) 6 3.0 (2.5-3.6) 7 4.8 (3.8-6.1) Departure - Departure Time of Disposition: 19:00 (DUE TO WIDE COMPLES TACH AND THE FACT THAT THE R/S RATIO IN LEAD ONE IS IS LOW MEANING TALL S WAVE THAN R WAVE LEAD V6 MONOMORPHIC NATURE OF THE WIDE COMPLEXES I THINK THIS PT HAS ADENOCAR SENSATIVE VENTRICULAR TACHY CARDIA MUST SEE CARDIOLOGY) Disposition: TSF SHORT-TRM HOSP Discharge Problem: Palpitations, Pulmonary embolism on right Instructions: Palpitations (ED) Condition: Good Pt referred to PMD for follow-up: Yes Allergies/Adverse Reactions: Allergies No Known Allergies Allergy (Verified 08/02/17 18:46) Home Medications: Ambulatory Orders Clonazepam [Klonopin] 0.5 mg PO TID 03/20/14 Levothyroxine Sodium 25 mcg PO DAILY #1 tab-cap 03/24/16 Lisinopril 40 mg PO DAILY #1 tab-cap 03/24/16 Apixaban [Eliquis] 5 mg PO BID #39 tablet 08/06/17 Hydrocodone/Acetaminophen [[place] 5-325 Tablet] 1 each PO BID PRN #60 tablet 10/12 Disposition Discussed With: Patient
[2017-08-12 18:03] VITALS: BP 100/79
[2017-08-12] MEDS ORDERED: LIDOCAINE HCL 2% LUER-JET IVP STA (18:04)
[2017-08-12 18:11] LABS: ALBUMIN 2.8 g/dL (3.4-5.0); ALBUMIN/GLOBULIN RATIO 0.74; ANION GAP 17.5; BILIRUBIN,TOTAL 0.27 mg/dL (0.00-1.20); BUN/CREATININE RATIO 13.33; CALCIUM 8.4 mg/dL (8.2-10.2); CREATININE 0.9 mg/dL (0.60-1.10); POTASSIUM 3.5 mmol/L (3.5-5.1); TOTAL PROTEIN 6.6 g/dL (6.4-8.2); TROPONIN I 0.16 ng/ml (0.0000-0.4000)
--- NOTE | 2017-08-13 07:43 | DI ---
EXAM: Single frontal view of the chest HISTORY: Chest pain. COMPARISON: Chest x-ray 08/02/[address] chest 08/06/2017 FINDINGS: Cardiomediastinal silhouette is enlarged. There is no pneumothorax or pleural effusion. T here is no consolidation, nodule or mass. There is minimal ground-glass in the medial right lower lo be. The osseous structures are unremarkable. IMPRESSION: 1. Mild ground-glass in the medial right lower lobe may represent changes from previously identified right lower lobe pulmonary emboli versus focal atelectasis. 2. No additional acute cardiopulmonary process.
== END 2017-08-12 18:35 | disposition short-term general hospital (02) ==
LOC: ED 17:06
DX: R00.2 Palpitations (principal); I26.99 Other pulmonary embolism without acute cor pulmonale; R07.9 Chest pain, unspecified; I10 Essential (primary) hypertension; E03.9 Hypothyroidism, unspecified; E66.9 Obesity, unspecified; F17.210 Nicotine dependence, cigarettes, uncomplicated; Z79.899 Other long term (current) drug therapy
CPT/HCPCS: 36415; 80053; 82550; 84484; 85025; 93005; 93010; 96374; 99285

== ENCOUNTER 2017-08-12 18:34 | Outpatient (CLI) ==
[2017-08-12 17:12] VITALS: BMI 49.5
== END 2017-08-12 18:35 | disposition home or self-care (01) ==
LOC: AMBL 18:34
PROVIDERS: ATTEND Internal Medicine
DX: R00.0 Tachycardia, unspecified (principal); I10 Essential (primary) hypertension; F41.9 Anxiety disorder, unspecified; Z86.711 Personal history of pulmonary embolism

== ENCOUNTER 2017-08-22 16:04 | Outpatient (CLI) | END 2017-08-22 16:05 | disposition home or self-care (01) | LOC: CAR 16:04 | PROVIDERS: ATTEND Internal Medicine | DX: G47.10 Hypersomnia, unspecified (principal); R06.83 Snoring | CPT/HCPCS: 95810 ==

== ENCOUNTER 2018-04-22 19:50 | Emergency (ER) ==
[2018-04-22 20:06] VITALS: BP 151/96; TEMP 99.1; BMI 44.4
--- NOTE | 2018-04-22 21:01 | CT ---
EXAM: CT chest without contrast HISTORY: Left lateral chest pain COMPARISON: CT chest 08/06/2017 and multiple priors TECHNIQUE: Serial axial images of the chest were obtained from the lung apices to the upper abdomen without contrast. These were viewed in multiple planes. FINDINGS: The thyroid is normal. The visualized vessels are unremarkable without aneurysm or stenos is. The heart is normal in size without pericardial effusion. There are no pathologically enlarged mediastinal or hilar lymph nodes. There is no pneumothorax or pleural effusion. There is no consolidation, nodule or mass. There is no abnormal ground-glass. The right pleural effusion on prior study has resolved. There is no abnormal pulmonary ground-glass. No displaced rib fracture is identified. The vertebral bodies are unchanged. Limited views of the s oft tissues in the upper abdomen are better evaluated on same day CT abdomen pelvis. IMPRESSION: 1. No acute cardiopulmonary process or displaced rib fracture to account for patient's symptoms. 2. The previously noted right pleural effusion has resolved.
--- NOTE | 2018-04-22 21:06 | CT ---
EXAM: CT abdomen pelvis without intravenous contrast 04/22/2018. Sagittal and coronal reformatted i mages obtained HISTORY: Left lateral abdominal pain COMPARISON: None. FINDINGS: The liver, gallbladder, adrenal glands and kidneys show no acute abnormality. There is no urinary obstruction. The spleen and pancreas show no acute abnormality. There is no bowel obstruction. The appendix is normal. Unremarkable urinary bladder. No acute osseous abnormality. IMPRESSION: 1. No urinary or bowel obstruction and normal appendix. 2. No acute inflammatory process identified within the abdomen or pelvis within the limitation of a noncontrast enhanced examination. 3. A portion of the left lateral abdominal wall is excluded from the field of view.
--- NOTE | 2018-04-22 21:34 | ED.PDOC ---
General ED Provider: Dr. DIETER AMBROSE Chief Complaint: Non-specific Complaint Stated Complaint: Patient is a 42 year old male who has a history of PE diagnosed last year was placed on Eliaquis for 3 month. During that time had had Left sided pain that was diagnosed as Muscular skeletal. He has had this pain off and on for since November 2017- 5 months. Describe it as Sharp pain denies any lifting or trauma. Time Seen by Physician: 21:31 Mode of Arrival: Walk-In Information Source: Patient Exam Limitations: No limitations Primary Care Provider: KAL DAUGHERTY Nursing and Triage Documentation Reviewed and Agree: Yes Reviewed sepsis parameters & appropriate labs ordered?: No System Inflammatory Response Syndrome: Pulse >90 BPM Sepsis Protocol: For patient's 13 years and over: Temp is 96.8 and below OR 101 and greater Pulse >90 BPM Resp >20/minute Acutely Altered Mental Status Are patient's symptoms suggestive of a new infection, such as: -Pneumonia -Skin, Soft Tissue -Endocarditis -UTI -Bone, Joint Infection -Implantable Device -Acute Abdominal Infection -Wound Infection -Meningitis -Blood Stream Catheter Infection -Unknown System Inflammatory Response Syndrome: Not Applicable Review of Systems - Review Of Systems Constitutional: Reports: No symptoms Eyes: Reports: No symptoms Ears, Nose, Mouth, Throat: Reports: No symptoms Respiratory: Reports: No symptoms Cardiac: Reports: No symptoms GI: Reports: No symptoms : Reports: No symptoms Musculoskeletal: Reports: Other (Left lateral rib pain ) Skin: Reports: No symptoms Neurological: Reports: No symptoms Endocrine: Reports: No symptoms Hematologic/Lymphatic: Reports: No symptoms All Other Systems: Reviewed and Negative Past Medical History - Past Medical History Previously Healthy: Yes Endocrine: Reports: Hypothyroid Cardiovascular: Reports: Hypertension Respiratory: Reports: PE Hematological: Reports: None Gastrointestinal: Reports: None Genitourinary: Reports: None Neuro/Psych: Reports: None Musculoskeletal: Reports: None Cancer: Reports: None Other Pertinent Past Medical History: obesity , sedentary life style - Surgical History General Surgical History: Reports: None - Family History Family History: Reports: None - Social History Smoking Status: Former smoker, Vaping Hx Substance Use: No Alcohol Screening: Occasionally - Immunizations Tetanus Shot up to Date: Yes Physical Exam - Physical Exam Appearance: Ill-appearing, Obese Ill-appearing: Mild Pain Distress: Moderate Eyes: EOMI, Conjunctiva clear ENT: Oropharynx normal Neck: Supple Respiratory: Airway patent, Breath sounds clear, Breath sounds equal, Respirations nonlabored Cardiovascular: RRR, Pulses normal, No rub, No murmur GI/: Soft, Nontender, No masses, Bowel sounds normal, No Organomegaly Musculoskeletal: Normal strength, ROM intact, No edema, No calf tenderness Skin: Warm, Dry, Normal color Neurological: Sensation intact, Motor intact, Reflexes intact, Cranial nerves intact, Alert, Oriented Psychiatric: Affect appropriate, Mood appropriate Interpretation - Radiology Interpretation Radiology Interpretation By: Radiologist Radiology Results: Negative (Resolved Pleural effusion.) Exam Interpreted: CT Scan Critical Care Note - Critical Care Note Total Time (mins): 0 Course - Course Hematology/Chemistry: 04/22/18 20:50 04/22/18 20:50 Orders, Labs, Meds: Lab Review 04/22/18 04/22/18 04/22/18 20:50 20:50 20:50 WBC 10.52 H RBC 5.25 Hgb 15.5 Hct 45.1 MCV 85.9 MCH 29.5 MCHC 34.4 RDW Coeff of Brenda 12.8 Plt Count 289 Immature Gran % (Auto) 0.4 Neut % (Auto) 58.8 Lymph % (Auto) 27.9 [place] % (Auto) 8.9 Eos % (Auto) 3.4 Baso % (Auto) 0.6 Immature Gran # (Auto) 0.0 Neut # (Auto) 6.2 Lymph # (Auto) 2.9 [place] # (Auto) 0.9 Eos # (Auto) 0.4 Baso # (Auto) 0.1 D-Dimer (Manual) 331.66 Sodium 137 Potassium 4.2 Chloride 102 Carbon Dioxide 23 Anion Gap 16.2 BUN 13 Creatinine 0.87 Estimated GFR (MDRD) 96.00 BUN/Creatinine Ratio 14.94 Glucose 108 H Calcium 9.3 Total Bilirubin 0.5 AST 11 L ALT 18 Alkaline Phosphatase 62 Total Protein 6.9 Albumin 3.5 Globulin 3.4 Albumin/Globulin Ratio 1.03 Amylase 65 Lipase 52 Orders Category Date Time Status AMYLASE Stat LAB 04/22/18 20:50 Completed CBC W/ AUTO DIFF Stat LAB 04/22/18 20:50 Completed COMPREHENSIVE METABOLIC PANEL Stat LAB 04/22/18 20:50 Completed D-DIMER Stat LAB 04/22/18 20:50 Completed LIPASE Stat LAB 04/22/18 20:[address] ABDOMEN/PELVIS WO CONTRAST Stat RADS 04/22/18 20:[address] CHEST W/O CONTRAST Stat RADS 04/22/18 20:20 Completed Vital Signs: Temp Pulse Resp BP Pulse Ox 04/22/18 19:51 99.1 F 101 H 20 151/96 H 97 Departure - Departure Time of Disposition: 21:32 Disposition: HOME SELF-CARE Discharge Problem: Chest wall pain Instructions: Chest Wall Pain (ED) Condition: Stable Pt referred to PMD for follow-up: Yes IPMP verified?: No Additional Instructions: Take pain medications as prescribed Follow up with PCP in 3 days Prescriptions: Ibuprofen [Motrin] 600 mg PO Q6H PRN #30 tablet PRN Reason: Analgesia Allergies/Adverse Reactions: Allergies No Known Allergies Allergy (Verified 04/22/18 20:06) Home Medications: Ambulatory Orders Clonazepam [Klonopin] 0.5 mg PO BID 03/20/14 Levothyroxine Sodium 50 mcg PO DAILY #1 tab-cap 03/24/16 Lisinopril 40 mg PO DAILY #1 tab-cap 03/24/16 Aspirin [Aspirin EC] 81 mg PO DAILYWM 04/22/18 Atorvastatin Calcium 40 mg PO BEDTIME 04/22/18 Ibuprofen [Motrin] 600 mg PO Q6H PRN #30 tablet 04/22/18 Disposition Discussed With: Patient, Family
== END 2018-04-22 21:54 | disposition home or self-care (01) ==
LOC: ED 19:50
DX: R07.89 Other chest pain (principal); I10 Essential (primary) hypertension; E03.9 Hypothyroidism, unspecified; E66.9 Obesity, unspecified; Z79.899 Other long term (current) drug therapy
CPT/HCPCS: 36415; 80053; 82150; 83690; 85025; 85379; 99283

== ENCOUNTER 2018-08-16 08:07 | Emergency (ER) ==
[2018-08-16 08:19] VITALS: BP 123/75; TEMP 99.1; BMI 47.3
[2018-08-16] MEDS ORDERED: DECADRON 4 MG/ML SDV IM STA (08:33)
[2018-08-16] MEDS ORDERED: MORPHINE 4 MG/ML SYRINGE IM STA (08:36)
[2018-08-16] MEDS ORDERED: ZOFRAN 4 MG/2 ML IM STA (08:38)
--- NOTE | 2018-08-16 08:38 | ED.PDOC ---
General ED Provider: Dr. JOSEFINA LEAL Chief Complaint: Bite Stated Complaint: inscet bite(spider) left upper arm Time Seen by Physician: 08:11 (see photos pt was seen with MERRY TIM) Mode of Arrival: Walk-In Information Source: Patient Exam Limitations: No limitations Primary Care Provider: KAL DAUGHERTY Nursing and Triage Documentation Reviewed and Agree: Yes Does patient meet sepsis criteria?: No If yes, has appropriate treatment been initiated?: No System Inflammatory Response Syndrome: Not Applicable (SEE PHOTOS) Sepsis Protocol: For patient's 13 years and over: Temp is 96.8 and below OR 101 and greater Pulse >90 BPM Resp >20/minute Acutely Altered Mental Status Are patient's symptoms suggestive of a new infection, such as: -Pneumonia -Skin, Soft Tissue -Endocarditis -UTI -Bone, Joint Infection -Implantable Device -Acute Abdominal Infection -Wound Infection -Meningitis -Blood Stream Catheter Infection -Unknown Skin Complaint Exam - Skin Rash/Itching Complaint/Exam Onset/Duration: 1 DAY Symptoms Are: Still present Initial Severity: Moderate Current Severity: Moderate Potential Exposures: Reports: Insect bite Alleviating: Reports: None Associated Signs and Symptoms: Denies: Difficulty breathing, Fever, Chills Skin Findings: Present: Maculae, Papules Differential Diagnoses: Allergic Reaction Review of Systems - Review Of Systems Constitutional: Reports: Fever, Malaise Eyes: Reports: No symptoms Ears, Nose, Mouth, Throat: Reports: No symptoms Respiratory: Reports: No symptoms Cardiac: Reports: No symptoms GI: Reports: Vomiting (X1) : Reports: No symptoms Musculoskeletal: Reports: No symptoms Skin: Reports: Rash (SEE PHOTO) Neurological: Reports: No symptoms Endocrine: Reports: No symptoms Hematologic/Lymphatic: Reports: No symptoms All Other Systems: Reviewed and Negative Past Medical History - Past Medical History Previously Healthy: Yes Endocrine: Reports: Hypothyroid Cardiovascular: Reports: Hypertension Respiratory: Reports: PE Hematological: Reports: None Gastrointestinal: Reports: None Genitourinary: Reports: None Neuro/Psych: Reports: None Musculoskeletal: Reports: None Cancer: Reports: None Other Pertinent Past Medical History: obesity , sedentary life style - Surgical History General Surgical History: Reports: None - Family History Family History: Reports: None - Social History Smoking Status: Former smoker, Vaping Hx Substance Use: No Alcohol Screening: None - Immunizations Tetanus Shot up to Date: Yes (2013) Physical Exam - Physical Exam Appearance: Well-appearing, No pain distress, Well-nourished Eyes: LEONOR, EOMI, Conjunctiva clear ENT: Ears normal, Nose normal, Oropharynx normal Respiratory: Airway patent, Breath sounds clear, Breath sounds equal, Respirations nonlabored Cardiovascular: RRR, Pulses normal, No rub, No murmur GI/: Soft, Nontender, No masses, Bowel sounds normal, No Organomegaly Musculoskeletal: Normal strength, ROM intact, No edema, No calf tenderness Skin: Warm, Dry (3CM RASH LEFT UPPER ARM SEE PHOTOS ) Neurological: Sensation intact, Motor intact, Reflexes intact, Cranial nerves intact, Alert, Oriented Psychiatric: Affect appropriate, Mood appropriate Re-Evaluation - Re-Evaluation Time of Re-Evaluation: 10:00 Status: Unchanged Vital Signs Stable: Yes Pain Level: 3 Appearance: NAD Lungs: Clear Skin: Warm and Dry Neuro: Alert and Oriented X3 CV: RRR Additional Comments: TEMP 100.0 NO RESP ISSUES Critical Care Note - Critical Care Note Total Time (mins): 0 Course - Course Hematology/Chemistry: 08/16/18 09:15 08/16/18 09:15 Orders, Labs, Meds: Lab Review 08/16/18 08/16/18 09:15 09:15 WBC 7.91 RBC 5.36 Hgb 15.7 Hct 46.4 MCV 86.6 MCH 29.3 MCHC 33.8 RDW Coeff of Brenda 13.6 Plt Count 209 Immature Gran % (Auto) 0.3 Neut % (Auto) 89.5 Lymph % (Auto) 4.6 L [place] % (Auto) 3.7 Eos % (Auto) 1.6 Baso % (Auto) 0.3 Immature Gran # (Auto) 0.0 Neut # (Auto) 7.1 H Lymph # (Auto) 0.4 L [place] # (Auto) 0.3 L Eos # (Auto) 0.1 Baso # (Auto) 0.0 Sodium 136.5 L Potassium 4.47 Chloride 102.3 Carbon Dioxide 23.1 Anion Gap 15.57 BUN 23.9 H Creatinine 1.02 Estimated GFR (MDRD) 80.00 BUN/Creatinine Ratio 23.43 Glucose 100.4 Calcium 9.34 Total Bilirubin 1.02 AST 17.4 ALT 23.7 Alkaline Phosphatase 70.6 Total Creatine Kinase 78.2 Total Protein 7.39 Albumin 4.14 Globulin 3.25 Albumin/Globulin Ratio 1.27 Orders Category Date Time Status CBC W/ AUTO DIFF Stat LAB 08/16/18 09:15 Completed COMPREHENSIVE METABOLIC PANEL Stat LAB 08/16/18 09:15 Completed CREATINE KINASE Stat LAB 08/16/18 09:15 Completed LYME, WESTERN BLOT, SERUM Stat LAB 08/16/18 Ordered Dexamethasone 4 mg/ml Inj [Decadron 4 mg/ml Sdv] MEDS 08/16/18 08:33 Discontinued 4 mg IM ONCE STA Ondansetron HCl/Pf [Zofran 4 mg/2 ml] MEDS 08/16/18 08:38 Discontinued 4 mg IM ONCE STA Medications Discontinued Medications Generic Name Dose Route Start Last Admin Trade Name Freq PRN Reason Stop Dose Admin Dexamethasone Sodium Phosphate 4 mg 08/16/18 08:33 08/16/18 08:57 Decadron 4 Mg/Ml Sdv IM 08/16/18 08:34 4 mg ONCE STA Administration Ondansetron HCl 4 mg 08/16/18 08:38 08/16/18 08:55 Zofran 4 Mg/2 Ml IM 08/16/18 08:39 4 mg ONCE STA Administration Vital Signs: Temp Pulse Resp BP Pulse Ox 08/16/18 08:09 99.1 F 104 H 20 123/75 95 Departure - Departure Time of Disposition: 10:00 Disposition: HOME SELF-CARE Discharge Problem: Insect bite Instructions: Insect Bite or Sting (ED) Condition: Good Pt referred to PMD for follow-up: Yes IPMP verified?: No Additional Instructions: Please call your Family Physician as soon as possible to schedule a follow-up appointment. Start meds IN AM.ALSO I HAVE SOME LABS PERTAINING TO LYME DISEASE AND OTHER ISSUE YOU MUST CHECK BACK INABOUT3 TO 5 DAYS FOR RESULTS OF THOSE OR ASK YOUR MD TO FORWARD THE LABS TO HIS/HER OFFICE . SPIDER BITES CAN GET SOMETIMES VERY SERIOUS AND COMPLICATED PLEASE DO MAKE SURE IF YOUR NOT GETTING BETTER YOU MUST BE REVALUATED BY A DOCTOR Prescriptions: Prednisone 40 mg PO DAILYWM #3 tablet Allergies/Adverse Reactions: Allergies No Known Allergies Allergy (Verified 08/16/18 08:18) Home Medications: Ambulatory Orders Clonazepam [Klonopin] 0.5 mg PO TID 03/20/14 Levothyroxine Sodium 50 mcg PO DAILY #1 tab-cap 03/24/16 Lisinopril 40 mg PO DAILY #1 tab-cap 03/24/16 Aspirin [Aspirin EC] 81 mg PO DAILYWM 04/22/18 Atorvastatin Calcium 40 mg PO BEDTIME 04/22/18 Prednisone 40 mg PO DAILYWM #3 tablet 08/16/18 Disposition Discussed With: Patient
== END 2018-08-16 10:12 | disposition home or self-care (01) ==
LOC: ED 08:07
DX: S40.862A Insect bite (nonvenomous) of left upper arm, initial encounter (principal); R21 Rash and other nonspecific skin eruption; R50.9 Fever, unspecified; W57.XXXA Bitten or stung by nonvenomous insect and other nonvenomous arthropods, initial encounter
CPT/HCPCS: 36415; 80053; 82550; 85025; 86617; 96372; 99283

== ENCOUNTER 2018-08-20 19:28 | Emergency (ER) ==
[2018-08-20 19:32] VITALS: BP 143/82; TEMP 98.1; BMI 45.8
--- NOTE | 2018-08-20 19:32 | ED.PDOC ---
General ED Provider: Dr. LUI PALACIO-ER Chief Complaint: Bite Stated Complaint: i was bitten by a spider--its turning dark now Time Seen by Physician: 19:30 Mode of Arrival: Walk-In Information Source: Patient Exam Limitations: No limitations Primary Care Provider: KAL DAUGHERTY Seen Within Last 72 Hours for Same Complaint By: ED Nursing and Triage Documentation Reviewed and Agree: Yes Does patient meet sepsis criteria?: No System Inflammatory Response Syndrome: Not Applicable Sepsis Protocol: For patient's 13 years and over: Temp is 96.8 and below OR 101 and greater Pulse >90 BPM Resp >20/minute Acutely Altered Mental Status Are patient's symptoms suggestive of a new infection, such as: -Pneumonia -Skin, Soft Tissue -Endocarditis -UTI -Bone, Joint Infection -Implantable Device -Acute Abdominal Infection -Wound Infection -Meningitis -Blood Stream Catheter Infection -Unknown Skin Complaint Exam - Skin/Soft Tissue Complaint/Exam Symptoms Are: Still present Timing: Constant Initial Severity: Mild Current Severity: Moderate Location: left bicep Character: Reports: Redness, Painful Aggravating: Reports: None Alleviating: Reports: None Associated Signs and Symptoms: Reports: Tenderness, Red streaks. Denies: Fever , Chills, Itching Related History: Reports: Insect bite/sting Related Surgical History: Reports: None Recent Exposure to Others w/Similar Symptoms: No Skin Findings: Present: Erythema, Dry ulceration Joint Tenderness Present: No Differential Diagnoses: Other Review of Systems - Review Of Systems Constitutional: Reports: No symptoms Eyes: Reports: No symptoms Ears, Nose, Mouth, Throat: Reports: No symptoms Respiratory: Reports: No symptoms Cardiac: Reports: No symptoms GI: Reports: No symptoms : Reports: No symptoms Musculoskeletal: Reports: No symptoms Skin: Reports: Bruising, Change in color, Other (noted bruising over left bicep) Neurological: Reports: No symptoms Endocrine: Reports: No symptoms Hematologic/Lymphatic: Reports: No symptoms All Other Systems: Reviewed and Negative Past Medical History - Past Medical History Previously Healthy: Yes Endocrine: Reports: Hypothyroid Cardiovascular: Reports: Hypertension Respiratory: Reports: PE Hematological: Reports: None Gastrointestinal: Reports: None Genitourinary: Reports: None Neuro/Psych: Reports: None Musculoskeletal: Reports: None Cancer: Reports: None Other Pertinent Past Medical History: obesity , sedentary life style - Surgical History General Surgical History: Reports: None - Family History Family History: Reports: None - Social History Smoking Status: Former smoker, Vaping Hx Substance Use: No Alcohol Screening: None Physical Exam - Physical Exam Appearance: Well-appearing, No pain distress, Well-nourished Eyes: LEONOR, EOMI, Conjunctiva clear ENT: Ears normal, Nose normal, Oropharynx normal Neck: Supple Respiratory: Airway patent, Breath sounds clear, Breath sounds equal, Respirations nonlabored Cardiovascular: RRR, Pulses normal, No rub, No murmur GI/: Soft, Nontender, No masses, Bowel sounds normal, No Organomegaly Musculoskeletal: Normal strength, ROM intact, No edema, No calf tenderness Skin: Warm, Dry (exam does confirm a wound measuring ) Neurological: Sensation intact Psychiatric: Affect appropriate, Mood appropriate Critical Care Note - Critical Care Note Total Time (mins): 0 Departure - Departure Time of Disposition: 19:34 Disposition: HOME SELF-CARE Discharge Problem: Brown recluse spider bite Qualifiers: Encounter type: subsequent encounter Injury intent: accidental or unintentional Qualified Code(s): T63.331D - Toxic effect of venom of brown recluse spider, accidental (unintentional), subsequent encounter Instructions: Brown Recluse Spider Bite (ED) Condition: Good Pt referred to PMD for follow-up: Yes IPMP verified?: No Additional Instructions: clindamycin 300mg tid x 7 days--stiop amoxil---contact [facility] or ER nursing staff in am to get referral for wound care clinic Allergies/Adverse Reactions: Allergies No Known Allergies Allergy (Verified 08/16/18 08:18) Home Medications: Ambulatory Orders Clonazepam [Klonopin] 0.5 mg PO TID 03/20/14 Levothyroxine Sodium 50 mcg PO DAILY #1 tab-cap 03/24/16 Lisinopril 40 mg PO DAILY #1 tab-cap 03/24/16 Aspirin [Aspirin EC] 81 mg PO DAILYWM 04/22/18 Atorvastatin Calcium 40 mg PO BEDTIME 04/22/18 Amoxicillin 500 mg PO Q6HR #30 tablet 08/16/18 Prednisone 40 mg PO DAILYWM #3 tablet 08/16/18 Disposition Discussed With: Patient
== END 2018-08-20 19:41 | disposition home or self-care (01) ==
LOC: ED 19:28
DX: T63.311A Toxic effect of venom of black widow spider, accidental (unintentional), initial encounter (principal)
CPT/HCPCS: 99282

== ENCOUNTER 2018-11-18 02:37 | Emergency (ER) ==
[2018-11-18 02:43] VITALS: BP 140/81; TEMP 101.2; BMI 44.7
--- NOTE | 2018-11-18 03:32 | ED.PDOC ---
General ED Provider: Dr. LUI VAN MD Chief Complaint: Nausea/Vomiting Stated Complaint: vomiting many time stoday Time Seen by Physician: 02:45 Mode of Arrival: Walk-In Information Source: Patient Exam Limitations: No limitations Primary Care Provider: SAMINA NUNEZ Nursing and Triage Documentation Reviewed and Agree: Yes Does patient meet sepsis criteria?: Yes (resp now 18) If yes, has appropriate treatment been initiated?: Yes (IV fluids) System Inflammatory Response Syndrome: Temp 101F or Greater, Pulse >90 BPM Sepsis Protocol: For patient's 13 years and over: Temp is 96.8 and below OR 101 and greater Pulse >90 BPM Resp >20/minute Acutely Altered Mental Status Are patient's symptoms suggestive of a new infection, such as: -Pneumonia -Skin, Soft Tissue -Endocarditis -UTI -Bone, Joint Infection -Implantable Device -Acute Abdominal Infection -Wound Infection -Meningitis -Blood Stream Catheter Infection -Unknown GI Complaint Exam - Vomiting/Diarrhea Complaint/Exam Symptoms Are: Still present Initial Severity: Mild Current Severity: Moderate Character of Vomiting: Reports: Non-bilious, Retching Aggravating: Reports: None Alleviating: Reports: None Last Oral Intake: today Last Bowel Movement: today Non-GI Risk Factors: Reports: None Surgical Obstruction Risk Factors: Reports: None (no past abd surgery) Related Surgical History: Reports: None Rectal Exam: Present: Other Kussmaul Respirations Present: No Differential Diagnoses: Dehydration, Viral Gastroenteritis Review of Systems - Review Of Systems Constitutional: Reports: Chills, Fever Eyes: Reports: No symptoms Ears, Nose, Mouth, Throat: Reports: No symptoms Respiratory: Reports: No symptoms Cardiac: Reports: No symptoms GI: Reports: Vomiting : Reports: No symptoms Musculoskeletal: Reports: No symptoms Skin: Reports: No symptoms Neurological: Reports: No symptoms Endocrine: Reports: No symptoms Hematologic/Lymphatic: Reports: No symptoms All Other Systems: Reviewed and Negative Past Medical History - Past Medical History Previously Healthy: Yes Endocrine: Reports: Hypothyroid Cardiovascular: Reports: Hypertension Respiratory: Reports: PE Hematological: Reports: None Gastrointestinal: Reports: None Genitourinary: Reports: None Neuro/Psych: Reports: None Musculoskeletal: Reports: None Cancer: Reports: None Other Pertinent Past Medical History: obesity , sedentary life style - Surgical History General Surgical History: Reports: None - Family History Family History: Reports: None - Social History Smoking Status: Former smoker, Vaping Hx Substance Use: No Alcohol Screening: None Physical Exam - Physical Exam Appearance: Obese (over 300 lbs) Ill-appearing: Mild Pain Distress: None Eyes: LEONOR ENT: Ears normal, Nose normal, Oropharynx normal Respiratory: Airway patent, Breath sounds clear, Breath sounds equal, Respirations nonlabored Cardiovascular: RRR, Pulses normal, No rub, No murmur GI/: Soft, Nontender, No masses, Bowel sounds normal, No Organomegaly Musculoskeletal: Normal strength Critical Care Note - Critical Care Note Total Time (mins): 0 Course - Course Hematology/Chemistry: 11/18/18 03:00 11/18/18 03:00 Orders, Labs, Meds: Lab Review 11/18/18 11/18/18 11/18/18 02:45 03:00 03:00 WBC 7.39 RBC 5.00 Hgb 14.6 Hct 42.9 MCV 85.8 MCH 29.2 MCHC 34.0 RDW Coeff of Brenda 13.5 Plt Count 240 Immature Gran % (Auto) 0.3 Neut % (Auto) 83.8 Lymph % (Auto) 7.7 L Luna % (Auto) 7.6 Eos % (Auto) 0.3 Baso % (Auto) 0.3 Immature Gran # (Auto) 0.0 Neut # (Auto) 6.2 Lymph # (Auto) 0.6 Luna # (Auto) 0.6 Eos # (Auto) 0.0 Baso # (Auto) 0.0 Sodium 132.5 L Potassium 3.87 Chloride 101.0 Carbon Dioxide 25.7 Anion Gap 9.67 BUN 17.1 Creatinine 0.75 Estimated GFR (MDRD) 114.00 BUN/Creatinine Ratio 22.80 Glucose 120.5 H Calcium 7.90 L Total Bilirubin 1.03 AST 17.2 ALT 21.2 Alkaline Phosphatase 54.2 Total Protein 6.75 Albumin 3.73 Globulin 3.02 Albumin/Globulin Ratio 1.23 Influ A Molecular Assay Negative by naat Influ B Molecular Assay Negative by naat Orders Category Date Time Status CBC W/ AUTO DIFF Stat LAB 11/18/18 03:00 Completed COMPREHENSIVE METABOLIC PANEL Stat LAB 11/18/18 03:00 Completed FLU A/B MOLECULAR Stat LAB 11/18/18 02:45 Completed MOLECULAR GROUP A STREP Stat LAB 11/18/18 02:45 Completed Ondansetron HCl/Pf [Zofran 4 mg/2 ml] MEDS 11/18/18 03:46 Stat 4 mg IVP ONCE STA KUB [ABDOMEN 1 VIEW] Stat RADS 11/18/18 03:27 Ordered Medications Generic Name Dose Route Start Last Admin Trade Name Kat PRN Reason Stop Dose Admin Ondansetron HCl 4 mg 11/18/18 03:46 Zofran 4 Mg/2 Ml IVP 11/18/18 03:47 ONCE STA Vital Signs: Temp Pulse Resp BP Pulse Ox 11/18/18 02:37 101.2 F H 110 H 24 140/81 96 Departure - Departure Time of Disposition: 04:00 Disposition: HOME SELF-CARE Discharge Problem: Vomiting, Viral gastritis Instructions: Gastroenteritis (ED) Condition: Good Pt referred to PMD for follow-up: Yes IPMP verified?: No Allergies/Adverse Reactions: Allergies No Known Allergies Allergy (Verified 11/18/18 02:43) Home Medications: Ambulatory Orders Clonazepam [Klonopin] 0.5 mg PO TID 03/20/14 Levothyroxine Sodium 50 mcg PO DAILY #1 tab-cap 03/24/16 Lisinopril 40 mg PO DAILY #1 tab-cap 03/24/16 Aspirin [Aspirin EC] 81 mg PO DAILYWM 04/22/18 Atorvastatin Calcium 40 mg PO BEDTIME 04/22/18 Transfer Form Completed: No Disposition Discussed With: Patient
[2018-11-18] MEDS ORDERED: ZOFRAN 4 MG/2 ML IVP STA (03:46)
[2018-11-18] MEDS ORDERED: [UNRECOGNIZED DRUG - OTHER] IV STA ×2 (03:57)
[2018-11-18] MEDS ORDERED: DEXTROSE IV STA ×2 (03:57)
[2018-11-18] MEDS ORDERED: WATER DEXTROSE IV STA ×2 (03:57)
--- NOTE | 2018-11-18 07:09 | DI ---
EXAM: Single view of the abdomen HISTORY: Vomiting. COMPARISON: CT abdomen pelvis 04/22/2018 FINDINGS: The osseous structures are unremarkable. There are no dilated loops of bowel, free air or pneumatosis. There is no visualized foreign body or abnormal calcification. IMPRESSION: Nonobstructive, nonspecific bowel gas pattern.
== END 2018-11-18 04:10 | disposition home or self-care (01) ==
LOC: ED 02:37
DX: A08.4 Viral intestinal infection, unspecified (principal); Z72.0 Tobacco use; J02.9 Acute pharyngitis, unspecified
CPT/HCPCS: 36415; 80053; 85025; 87502; 87651; 96361; 96374; 99283

== ENCOUNTER 2019-03-13 12:30 | Emergency (ER) ==
[2019-03-13 12:33] VITALS: BP 160/90; TEMP 98.6; BMI 47.0
--- NOTE | 2019-03-13 12:40 | ED.PDOC ---
General ED Provider: Dr. DANIEL KENT Chief Complaint: Back Pain Stated Complaint: Back pain, scapular - similar to last time he had a PE. Wants to be checked out instead of waiting too long like last time. Time Seen by Physician: 12:38 Mode of Arrival: Walk-In Information Source: Patient Primary Care Provider: SAMINA NUNEZ Nursing and Triage Documentation Reviewed and Agree: Yes Does patient meet sepsis criteria?: No System Inflammatory Response Syndrome: Not Applicable Sepsis Protocol: For patient's 13 years and over: Temp is 96.8 and below OR 101 and greater Pulse >90 BPM Resp >20/minute Acutely Altered Mental Status Are patient's symptoms suggestive of a new infection, such as: -Pneumonia -Skin, Soft Tissue -Endocarditis -UTI -Bone, Joint Infection -Implantable Device -Acute Abdominal Infection -Wound Infection -Meningitis -Blood Stream Catheter Infection -Unknown Review of Systems - Review Of Systems Constitutional: Reports: No symptoms Respiratory: Reports: No symptoms. Denies: Cough, Orthopnea, Short of air, Stridor, Wheezing Cardiac: Reports: No symptoms. Denies: Chest pain, Edema, Lightheadedness, Palpitations, Syncope GI: Reports: No symptoms Musculoskeletal: Reports: Back pain (Posterior L scapular pain; same as when he had PE) Neurological: Reports: Anxiety (History; concerned same history of pain with prior PE) All Other Systems: Reviewed and Negative Past Medical History - Past Medical History Previously Healthy: Yes Endocrine: Reports: Hypothyroid Cardiovascular: Reports: Hypertension Respiratory: Reports: PE Hematological: Reports: None Gastrointestinal: Reports: None Genitourinary: Reports: None Neuro/Psych: Reports: None Musculoskeletal: Reports: None Cancer: Reports: None Other Pertinent Past Medical History: obesity , sedentary life style - Surgical History General Surgical History: Reports: None - Family History Family History: Reports: None - Social History Smoking Status: Former smoker, Vaping Hx Substance Use: No Alcohol Screening: None - Immunizations Tetanus Shot up to Date: No Physical Exam - Physical Exam Appearance: Well-appearing Respiratory: Airway patent, Breath sounds clear, Breath sounds equal, Respirations nonlabored Cardiovascular: RRR, Pulses normal Musculoskeletal: Normal strength, ROM intact, No edema Skin: Warm, Dry, Normal color Neurological: Sensation intact, Motor intact, Alert, Oriented Psychiatric: Affect appropriate, Mood appropriate Critical Care Note - Critical Care Note Total Time (mins): 15 Comments: Eval of CBC, CMP and D Dimer, Pt history of similar pain/discomfort and found to have PE in the past. Course - Course Hematology/Chemistry: 03/13/19 12:50 03/13/19 12:50 Orders, Labs, Meds: Lab Review 03/13/19 03/13/19 03/13/19 12:50 12:50 12:50 WBC 8.83 RBC 5.06 Hgb 15.0 Hct 43.5 MCV 86.0 MCH 29.6 MCHC 34.5 RDW Coeff of Brenda 13.4 Plt Count 312 Immature Gran % (Auto) 0.2 Neut % (Auto) 67.3 Lymph % (Auto) 23.1 Randolph % (Auto) 6.9 Eos % (Auto) 2.0 Baso % (Auto) 0.5 Immature Gran # (Auto) 0.0 Neut # (Auto) 5.9 Lymph # (Auto) 2.0 Randolph # (Auto) 0.6 Eos # (Auto) 0.2 Baso # (Auto) 0.0 D-Dimer (Manual) 241.29 Sodium 138.7 Potassium 3.86 Chloride 104.3 Carbon Dioxide 23.4 Anion Gap 14.86 BUN 16.3 Creatinine 0.98 Estimated GFR (MDRD) 83.00 BUN/Creatinine Ratio 16.63 Glucose 121.4 H Calcium 8.82 Total Bilirubin 0.46 AST 21.2 ALT 26.0 Alkaline Phosphatase 57.3 Total Protein 7.09 Albumin 4.49 Globulin 2.60 Albumin/Globulin Ratio 1.72 Orders Category Date Time Status CBC W/ AUTO DIFF Stat LAB 03/13/19 12:50 Completed COMPREHENSIVE METABOLIC PANEL Stat LAB 03/13/19 12:50 Completed D-DIMER Stat LAB 03/13/19 12:50 Completed Vital Signs: Temp Pulse Resp BP Pulse Ox 03/13/19 12:31 98.6 F 100 H 18 160/90 H 97 Departure - Departure Time of Disposition: 13:47 Disposition: HOME SELF-CARE Discharge Problem: Shoulder pain, left Instructions: Shoulder Pain (ED) Condition: Stable Pt referred to PMD for follow-up: Yes (Follow up with primary care) IPMP verified?: Yes (Regular user/anxiety med) Additional Instructions: Follow up with primary care if not better next week. Advise them of lab work and negative D Dimer; no indication of PE as was present in the past. Allergies/Adverse Reactions: Allergies No Known Allergies Allergy (Verified 03/13/19 12:33) Home Medications: Ambulatory Orders Clonazepam [Klonopin] 0.5 mg PO TID 03/20/14 Levothyroxine Sodium 50 mcg PO DAILY #1 tab-cap 03/24/16 Lisinopril 40 mg PO DAILY #1 tab-cap 03/24/16 Aspirin [Aspirin EC] 81 mg PO DAILYWM 04/22/18
== END 2019-03-13 13:52 | disposition home or self-care (01) ==
LOC: ED 12:30
DX: M25.512 Pain in left shoulder (principal); E03.9 Hypothyroidism, unspecified; I10 Essential (primary) hypertension; E66.9 Obesity, unspecified; Z72.0 Tobacco use; Z86.711 Personal history of pulmonary embolism
CPT/HCPCS: 36415; 80053; 85025; 85379; 99282

== ENCOUNTER 2019-05-12 12:08 | Outpatient (CLI) ==
--- NOTE | 2019-05-12 13:47 | DI ---
EXAM: Three views of the left knee. History: Left knee pain. Findings: No acute fracture or dislocation. Mild to moderate tricompartmental joint space narrowing with small osteophytes. No radiopaque foreign bodies. Impression: 1. No acute osseous abnormality. 2. Mild to moderate tricompartmental osteoarthritis
--- NOTE | 2019-05-12 13:58 | DI ---
EXAM: Three views of the right knee. History: Right knee pain. Findings: No acute fracture or dislocation. Mild tricompartmental joint space narrowing with small osteophytes. Superior patellar enthesiopathy. No radiopaque foreign bodies. Impression: 1. No acute osseous abnormality. 2. Mild tricompartmental osteoarthritis
== END 2019-05-12 12:09 | disposition home or self-care (01) ==
LOC: RAD 12:08
PROVIDERS: ATTEND Physician Assistant
DX: M25.562 Pain in left knee (principal); M25.561 Pain in right knee